=== PATIENT | male | born 1945 | race Caucasian/White ===

== ENCOUNTER 2016-09-02 12:02 | Inpatient (IN) ==
--- NOTE | 2016-09-02 12:26 | Emergency Department Note ---
Disposition Clinical Impression: Urinary retention, Leukocytosis, UTI (urinary tract infection), Confusion Disposition: Admitted As Inpatient General Adult HPI - General Chief complaint: ED Urogenital-Male Stated complaint: unable to void Time Seen by Provider: 09/02/16 12:22 Source: patient Limitations: no limitations - History of Present Illness Pain Scale: 0 - Related Data Home Medications Medication Instructions Recorded Confirmed Clopidogrel [Plavix] 75 mg PO DAILY 06/03/16 09/02/16 Escitalopram [Lexapro] 20 mg PO DAILY 06/03/16 09/02/16 Furosemide [Lasix] 40 mg PO DAILY 06/03/16 09/02/16 Gabapentin [Neurontin] 1,200 mg PO BID 06/03/16 09/02/16 Losartan Potassium [Cozaar] 50 mg PO DAILY 06/03/16 09/02/16 Potassium Chloride [K-Tab ER] 20 meq PO BID 06/03/16 09/02/16 Tamsulosin HCl [Flomax] 0.4 mg PO DAILY 06/03/16 09/02/16 Warfarin [Coumadin] 2.5 mg PO MOTH 06/03/16 09/02/16 Warfarin [Coumadin] 5 mg PO SUTUWEFRSA 06/03/16 09/02/16 Amlodipine [Norvasc] 5 mg PO DAILY 09/02/16 09/02/16 Aspirin [Lo-Dose Aspirin EC] 81 mg PO DAILY 09/02/16 09/02/16 Atorvastatin [Lipitor] 40 mg PO HS 09/02/16 09/02/16 Metoprolol XL (24 HR) Succ [Toprol 100 mg PO DAILY 09/02/16 09/02/16 XL] Allergies Allergy/AdvReac Type Severity Reaction Status Date / Time No Known Allergies Allergy Verified 06/03/16 08:52 Past Medical History - Past Medical History Medical history: Reports: atrial fibrillation, CHF, hyperlipidemia, hypertension Psychiatric history: Reports: depression - Social History Smoking Status: Never smoker Smokeless Tobacco Status: No Alcohol use: Reports: none Drug use: Reports: none Physical Exam - General Limitations: no limitations General appearance: alert, in no apparent distress Course Vital Signs Temperature 99 F 09/02/16 12:18 Pulse Rate 76 09/02/16 12:18 Respiratory Rate 18 09/02/16 12:18 Blood Pressure 90/57 09/02/16 12:18 O2 Sat by Pulse Oximetry 99 09/02/16 12:18 Temperature 98.8 F 09/02/16 18:04 Pulse Rate 80 09/02/16 18:04 Respiratory Rate 16 09/02/16 18:04 Blood Pressure 93/56 09/02/16 18:04 O2 Sat by Pulse Oximetry 96 09/02/16 18:04 Oxygen Delivery Oxygen Delivery Nasal Cannula Medical Decision Making - Lab Data Result diagrams: 09/02/16 13:02 09/02/16 13:02 Lab Results 09/02/16 09/02/16 09/02/16 Range/Units 13:02 13:02 13:02 WBC 22.9 H (4.3-11.1) K/mcL RBC 5.31 (4.19-5.50) M/mcL Hgb 14.4 (12.9-16.9) g/dL Hct 44.4 (37.5-50.1) % MCV 83.6 (83.0-100.0) fL MCH 27.1 L (28.0-33.3) pg MCHC 32.4 (31.6-35.5) g/dL RDW 16.1 H (11.5-14.5) % Plt Count 273 (140-400) K/mcL MPV 10.2 (9.4-12.4) fL Immature Gran % 0.6 (0-4) % Seg Neutrophils % 84.8 % Lymphocytes % 6.3 % Monocytes % 8.1 % Eosinophils % 0.0 % Basophils % 0.2 % Neutrophils # 19.4 H (1.6-8.9) K/mcL Lymphocytes # 1.4 (0.6-4.6) K/mcL Monocytes # 1.9 H (0.0-1.3) K/mcL Eosinophils # 0.0 (0.0-0.6) K/mcL Basophils # 0.0 (0.0-0.2) K/mcL Immature Plt Fraction 5.0 (1.1-6.1) % PT 31.2 H (9.4-12.1) Seconds INR 2.8 Sodium 135 L (136-145) mEq/L Potassium 4.3 (3.5-4.5) mEq/L Chloride 102 (98-109) mEq/L Carbon Dioxide 22 (19-29) mEq/L BUN 20 (8-26) mg/dL Creatinine 1.75 H (0.72-1.25) mg/dL Est GFR ( Amer) 47 L (> 60) Est GFR (Non-Af Amer) 39 L (> 60) BUN/Creatinine Ratio 11 (6-26) Glucose 115 H (70-99) mg/dL Calculated Osmolality 284 (280-300) Calcium 9.2 (8.6-10.8) mg/dL Urine Color (Yellow) Urine Clarity (Clear) Urine pH (5.0-8.0) pH Units Ur Specific [place] (1.010-1.025) Urine Protein (Neg-Trace) mg/dL Urine Glucose (UA) (Normal) mg/dL Urine Ketones (Negative) mg/dL Urine Blood (Negative) Urine Nitrite (Negative) Urine Bilirubin (Negative) Urine Urobilinogen (Normal) mg/dL Ur Leukocyte Esterase (Negative) Urine Microscopic RBC (0-3) per hpf Urine Microscopic WBC (0-3) per hpf Ur Squamous Epith Cells (None-Few) per lpf Urine Bacteria (None-Few) per hpf Hyaline Casts (None-Few) per lpf Ur Culture Indicated? (NO) Digoxin < 0.3 L (0.8-2.0) ng/mL 09/02/16 Range/Units 15:16 WBC (4.3-11.1) K/mcL RBC (4.19-5.50) M/mcL Hgb (12.9-16.9) g/dL Hct (37.5-50.1) % MCV (83.0-100.0) fL MCH (28.0-33.3) pg MCHC (31.6-35.5) g/dL RDW (11.5-14.5) % Plt Count (140-400) K/mcL MPV (9.4-12.4) fL Immature Gran % (0-4) % Seg Neutrophils % % Lymphocytes % % Monocytes % % Eosinophils % % Basophils % % Neutrophils # (1.6-8.9) K/mcL Lymphocytes # (0.6-4.6) K/mcL Monocytes # (0.0-1.3) K/mcL Eosinophils # (0.0-0.6) K/mcL Basophils # (0.0-0.2) K/mcL Immature Plt Fraction (1.1-6.1) % PT (9.4-12.1) Seconds INR Sodium (136-145) mEq/L Potassium (3.5-4.5) mEq/L Chloride (98-109) mEq/L Carbon Dioxide (19-29) mEq/L BUN (8-26) mg/dL Creatinine (0.72-1.25) mg/dL Est GFR ( Amer) (> 60) Est GFR (Non-Af Amer) (> 60) BUN/Creatinine Ratio (6-26) Glucose (70-99) mg/dL Calculated Osmolality (280-300) Calcium (8.6-10.8) mg/dL Urine Color Dark Yellow (Yellow) Urine Clarity Cloudy A (Clear) Urine pH 6.0 (5.0-8.0) pH Units Ur Specific [place] 1.014 (1.010-1.025) Urine Protein 30 H (Neg-Trace) mg/dL Urine Glucose (UA) Normal (Normal) mg/dL Urine Ketones Negative (Negative) mg/dL Urine Blood Large H (Negative) Urine Nitrite Negative (Negative) Urine Bilirubin Negative (Negative) Urine Urobilinogen Normal (Normal) mg/dL Ur Leukocyte Esterase Moderate H (Negative) Urine Microscopic RBC 15-30 H (0-3) per hpf Urine Microscopic WBC 30-50 H (0-3) per hpf Ur Squamous Epith Cells Many H (None-Few) per lpf Urine Bacteria None Seen (None-Few) per hpf Hyaline Casts None Seen (None-Few) per lpf Ur Culture Indicated? YES A (NO) Digoxin (0.8-2.0) ng/mL Attestation Statement - Attestation Attestation: I examined this patient and my medical decision-making was reviewed with the MODEL MAKER/PA/Advanced Practice Nurse/Resident Physician. I agree with the documented findings, disposition and treatment plan as described except to the extent set forth below. [id number] time provided Patient presents via wheelchair. He complains of the inability to void. He was recently admitted to a different facility for congestive heart failure. He is supposed to take tamsulosin but has not been taking it. He denies acute urinary retention in the past. He denies abdominal or flank pain 12:33: Limited transabdominal bedside ultrasound performed by me showing increased densities to the dependent portion of his bladder suspicious for clots. We have asked the nurse to place an irrigating [place] catheter and to irrigate the bladder. We will observe for resolution of symptoms. 15:55: Patient has a leukocytosis and a urinary tract infection but does not meet sepsis criteria otherwise. I spoke with Dr. Martinez, urology will likely be consult in to evaluate the patient for possible future bladder irrigation. Admit to the medicine service. Antibiotics initiated
--- NOTE | 2016-09-02 12:39 | Emergency Department Note ---
Disposition Clinical Impression: Urinary retention, Confusion Leukocytosis Qualifiers: Leukocytosis type: unspecified Qualified Code(s): D72.829 - Elevated white blood cell count, unspecified UTI (urinary tract infection) Qualifiers: Urinary tract infection type: site unspecified Hematuria presence: with hematuria Qualified Code(s): N39.0 - Urinary tract infection, site not specified Disposition: Admitted As Inpatient Male Urogenital HPI - General Chief complaint: ED Urogenital-Male Stated complaint: unable to void Time Seen by Provider: 09/02/16 12:22 Source: patient Limitations: no limitations Nursing Notes Reviewed: Yes Vital Signs Reviewed: Yes - History of Present Illness HPI Narrative: Mr. Olguin, a 71yo male, presents from home by POV with CC: unable to urinate. Patient has been unable to urinate since this morning. Yesterday, he stated he urinated blood with clots. He also was incontinent of urine while asleep. Patient has history of BPH, recently dc's Flomax by [facility]. Is 10 days out from discharge from [facility] where he was inpatient on the cardiac unit for CHF. He did not have a gotti catheter in place at [facility]. Patient denies chest pains or cardiac concerns today. Anticoagulated on coumadin for chronic A. Fib. no hx CKD, prostate cancer, bladder cancer. Admits: unable to urinate, recent hematuria. Denies: fever, chills, nausea, abdominal pain, back pain, flank pain, vertigo, weakness, chest pain. - Related Data Home Medications Medication Instructions Recorded Confirmed Clopidogrel [Plavix] 75 mg PO DAILY 06/03/16 09/02/16 Escitalopram [Lexapro] 20 mg PO DAILY 06/03/16 09/02/16 Furosemide [Lasix] 40 mg PO DAILY 06/03/16 09/02/16 Gabapentin [Neurontin] 1,200 mg PO BID 06/03/16 09/02/16 Losartan Potassium [Cozaar] 50 mg PO DAILY 06/03/16 09/02/16 Potassium Chloride [K-Tab ER] 20 meq PO BID 06/03/16 09/02/16 Tamsulosin HCl [Flomax] 0.4 mg PO DAILY 06/03/16 09/02/16 Warfarin [Coumadin] 2.5 mg PO MOTH 06/03/16 09/02/16 Warfarin [Coumadin] 5 mg PO SUTUWEFRSA 06/03/16 09/02/16 Amlodipine [Norvasc] 5 mg PO DAILY 09/02/16 09/02/16 Aspirin [Lo-Dose Aspirin EC] 81 mg PO DAILY 09/02/16 09/02/16 Atorvastatin [Lipitor] 40 mg PO HS 09/02/16 09/02/16 Metoprolol XL (24 HR) Succ [Toprol 100 mg PO DAILY 09/02/16 09/02/16 XL] Allergies Allergy/AdvReac Type Severity Reaction Status Date / Time No Known Allergies Allergy Verified 06/03/16 08:52 All systems ED: reviewed and negative except as stated. (as per HPI) Past Medical History - Past Medical History Medical history: Reports: atrial fibrillation, CHF, hyperlipidemia, hypertension Psychiatric history: Reports: depression - Social History Smoking Status: Never smoker Smokeless Tobacco Status: No Alcohol use: Reports: none Drug use: Reports: none Physical Exam General: Patient is alert, oriented, and in no acute distress. HEENT: No facial asymmetry. Head is normocephalic and atraumatic. PERRLA. Cardiovascular: Heart regular rate and rhythm without clicks, rubs, gallops, or murmurs. No JVD. PMI nondisplaced. Respiratory: Symmetric chest rise with good respiratory effort. Bilateral breath sounds are clear without wheezing, crackles, or rhonchi. Abdomen: Obese. Bowel sounds present normoactive x-4 quadrants. Abdomen is soft, nondistended, and nontender. Unable to assess organomegaly secondary to patient's body habitus. No flank tenderness. No CVA tenderness. Psych: Patient's affect is appropriate for situation. - General Limitations: no limitations General appearance: alert, in no apparent distress Course Course Narrative: Bedside ultrasound performed by myself and my attending showed a small bladder with hyperechoic substance in the dependent portion suspicious for clots. Will place through a Gotti so that we may irrigate his bladder. We will also perform a UA to rule out UTI as well as coags and basic labs. Labwork shows leukocytosis at 22.5. Cr elevated at 1.75. Otherwise unremarkable. Patient has been reassessed multiple times. Have flushed 3L through the triple lumen cath; now producing clear fluid. Will clamp the irrigation tubing to collect patient's urine. Patient's urine yellow and not grossly bloody. Will send for UA. On re- evaluation, patient is confused. Daughter notes he has intermittantly had confusion. Timeline unknown. Will add digoxin level, EKG, and CT head. Will admit for urinary retention and AMS. Patient's urine indicates UTI. His white count is 22.5. He does not meet SIRS criteria thus will not initiate sepsis protocol. His digoxin level is low. After discussion with the patient's daughter at bedside, the patient for urologic evaluation, IV antibiotics for UTI, continued evaluation of his confusion. Vital Signs Temperature 99 F 09/02/16 12:18 Pulse Rate 76 09/02/16 12:18 Respiratory Rate 18 09/02/16 12:18 Blood Pressure 90/57 09/02/16 12:18 O2 Sat by Pulse Oximetry 99 09/02/16 12:18 Temperature 98.8 F 09/02/16 18:04 Pulse Rate 80 09/02/16 18:04 Respiratory Rate 16 09/02/16 18:04 Blood Pressure 93/56 09/02/16 18:04 O2 Sat by Pulse Oximetry 96 09/02/16 18:04 Oxygen Delivery Oxygen Delivery Nasal Cannula Urogenital-Male - Medical Records Medical records reviewed: Yes I reviewed the patient's medical records. - Lab Data Lab results reviewed: Yes I reviewed the patient's lab results. Result diagrams: 09/02/16 13:02 09/02/16 13:02 Lab Results 09/02/16 09/02/16 09/02/16 Range/Units 13:02 13:02 13:02 WBC 22.9 H (4.3-11.1) K/mcL RBC 5.31 (4.19-5.50) M/mcL Hgb 14.4 (12.9-16.9) g/dL Hct 44.4 (37.5-50.1) % MCV 83.6 (83.0-100.0) fL MCH 27.1 L (28.0-33.3) pg MCHC 32.4 (31.6-35.5) g/dL RDW 16.1 H (11.5-14.5) % Plt Count 273 (140-400) K/mcL MPV 10.2 (9.4-12.4) fL Immature Gran % 0.6 (0-4) % Seg Neutrophils % 84.8 % Lymphocytes % 6.3 % Monocytes % 8.1 % Eosinophils % 0.0 % Basophils % 0.2 % Neutrophils # 19.4 H (1.6-8.9) K/mcL Lymphocytes # 1.4 (0.6-4.6) K/mcL Monocytes # 1.9 H (0.0-1.3) K/mcL Eosinophils # 0.0 (0.0-0.6) K/mcL Basophils # 0.0 (0.0-0.2) K/mcL Immature Plt Fraction 5.0 (1.1-6.1) % PT 31.2 H (9.4-12.1) Seconds INR 2.8 Sodium 135 L (136-145) mEq/L Potassium 4.3 (3.5-4.5) mEq/L Chloride 102 (98-109) mEq/L Carbon Dioxide 22 (19-29) mEq/L BUN 20 (8-26) mg/dL Creatinine 1.75 H (0.72-1.25) mg/dL Est GFR ( Amer) 47 L (> 60) Est GFR (Non-Af Amer) 39 L (> 60) BUN/Creatinine Ratio 11 (6-26) Glucose 115 H (70-99) mg/dL Calculated Osmolality 284 (280-300) Calcium 9.2 (8.6-10.8) mg/dL Urine Color (Yellow) Urine Clarity (Clear) Urine pH (5.0-8.0) pH Units Ur Specific [place] (1.010-1.025) Urine Protein (Neg-Trace) mg/dL Urine Glucose (UA) (Normal) mg/dL Urine Ketones (Negative) mg/dL Urine Blood (Negative) Urine Nitrite (Negative) Urine Bilirubin (Negative) Urine Urobilinogen (Normal) mg/dL Ur Leukocyte Esterase (Negative) Urine Microscopic RBC (0-3) per hpf Urine Microscopic WBC (0-3) per hpf Ur Squamous Epith Cells (None-Few) per lpf Urine Bacteria (None-Few) per hpf Hyaline Casts (None-Few) per lpf Ur Culture Indicated? (NO) Digoxin < 0.3 L (0.8-2.0) ng/mL 09/02/16 Range/Units 15:16 WBC (4.3-11.1) K/mcL RBC (4.19-5.50) M/mcL Hgb (12.9-16.9) g/dL Hct (37.5-50.1) % MCV (83.0-100.0) fL MCH (28.0-33.3) pg MCHC (31.6-35.5) g/dL RDW (11.5-14.5) % Plt Count (140-400) K/mcL MPV (9.4-12.4) fL Immature Gran % (0-4) % Seg Neutrophils % % Lymphocytes % % Monocytes % % Eosinophils % % Basophils % % Neutrophils # (1.6-8.9) K/mcL Lymphocytes # (0.6-4.6) K/mcL Monocytes # (0.0-1.3) K/mcL Eosinophils # (0.0-0.6) K/mcL Basophils # (0.0-0.2) K/mcL Immature Plt Fraction (1.1-6.1) % PT (9.4-12.1) Seconds INR Sodium (136-145) mEq/L Potassium (3.5-4.5) mEq/L Chloride (98-109) mEq/L Carbon Dioxide (19-29) mEq/L BUN (8-26) mg/dL Creatinine (0.72-1.25) mg/dL Est GFR ( Amer) (> 60) Est GFR (Non-Af Amer) (> 60) BUN/Creatinine Ratio (6-26) Glucose (70-99) mg/dL Calculated Osmolality (280-300) Calcium (8.6-10.8) mg/dL Urine Color Dark Yellow (Yellow) Urine Clarity Cloudy A (Clear) Urine pH 6.0 (5.0-8.0) pH Units Ur Specific [place] 1.014 (1.010-1.025) Urine Protein 30 H (Neg-Trace) mg/dL Urine Glucose (UA) Normal (Normal) mg/dL Urine Ketones Negative (Negative) mg/dL Urine Blood Large H (Negative) Urine Nitrite Negative (Negative) Urine Bilirubin Negative (Negative) Urine Urobilinogen Normal (Normal) mg/dL Ur Leukocyte Esterase Moderate H (Negative) Urine Microscopic RBC 15-30 H (0-3) per hpf Urine Microscopic WBC 30-50 H (0-3) per hpf Ur Squamous Epith Cells Many H (None-Few) per lpf Urine Bacteria None Seen (None-Few) per hpf Hyaline Casts None Seen (None-Few) per lpf Ur Culture Indicated? YES A (NO) Digoxin (0.8-2.0) ng/mL - Radiology Data Radiology results reviewed: Yes I reviewed the patient's radiology results. Head CT 09/02/16 15:15 IMPRESSION: No acute intracranial abnormality. D/ / Yuri Veliz MD / Yuri Veliz MD Interpreting Provider: Yuri Veliz MD - EKG Data EKG attestation: Yes I reviewed and interpreted this EKG. EKG results narrative: EKG dated 09/02/16 interpreted as ventricularly paced rhythm with a rate of 81. Compared to previous dated 06/03/2016 also showing ventricularly paced rhythm with a rate of 82. No acute ischemic changes comparison.
[2016-09-02 13:08] LABS: Basophils % 0.2 %; Hematocrit 44.4 % (37.5-50.1); Hemoglobin 14.4 g/dL (12.9-16.9); Immature Granulocytes % 0.6 % (0-4); Lymphocytes # 1.4 K/mcL (0.6-4.6); Lymphocytes % 6.3 %; Mean Corpuscular HGB Conc 32.4 g/dL (31.6-35.5); Mean Corpuscular Hemoglobin 27.1 pg (28.0-33.3); Mean Corpuscular Volume 83.6 fL (83.0-100.0); Mean Platelet Volume 10.2 fL (9.4-12.4); Monocytes # 1.9 K/mcL (0.0-1.3); Monocytes % 8.1 %; Neutrophils # 19.4 K/mcL (1.6-8.9); Platelet Count 273 K/mcL (140-400); Red Blood Count 5.31 M/mcL (4.19-5.50); Red Cell Distribution Width 16.1 % (11.5-14.5); Segmented Neutrophils % 84.8 %
[2016-09-02 13:13] LABS: INR 2.8; Prothrombin Time 31.2 Seconds (9.4-12.1)
[2016-09-02 13:21] LABS: BUN/Creatinine Ratio 11 (6-26); Blood Urea Nitrogen 20 mg/dL (8-26); Calcium 9.2 mg/dL (8.6-10.8); Carbon Dioxide 22 mEq/L (19-29); Chloride 102 mEq/L (98-109); Glucose 115 mg/dL (70-99); Osmolality,Calculated 284 (280-300); Potassium 4.3 mEq/L (3.5-4.5); Sodium 135 mEq/L (136-145); eGFR For African Americans 47 (> 60); eGFR For Non-African Americans 39 (> 60)
[2016-09-02 15:26] LABS: Bilirubin,Urine Negative (Negative); Blood,Urine Large (Negative); Clarity,Urine Cloudy (Clear); Color,Urine Dark Yellow (Yellow); Glucose,Urine (UA) Normal (Normal); Ketones,Urine Negative (Negative); Leukocyte Esterase,Urine Moderate (Negative); Nitrite,Urine Negative (Negative); Protein,Urine 30 mg/dL (Neg-Trace); Specific Gravity,Urine 1.014 (1.010-1.025); Urobilinogen,Urine Normal (Normal)
[2016-09-02 15:28] LABS: Bacteria,Urine None Seen per hpf (None-Few); Hyaline Casts,Urine None Seen per lpf (None-Few); RBC,Urine 15-30 per hpf (0-3); Squamous Epithelial Cell,Urine Many per lpf (None-Few); WBC,Urine 30-50 per hpf (0-3)
[2016-09-02 15:58] LABS: Digoxin < 0.3 ng/mL (0.8-2.0)
[2016-09-02] MEDS ORDERED: *HR* HYDROmorphone (PF) 1 MG/ML SYRINGE IVP ONE (16:36)
[2016-09-02] MEDS ORDERED: Naloxone 0.4 MG/ML INJ IVP PRN (18:12)
[2016-09-02] MEDS ORDERED: Acetaminophen 325 MG TABLET PO PRN (18:12)
--- NOTE | 2016-09-02 18:19 | Internal Med History&Physical ---
Date of Encounter: 09/02/16 Time of Encounter: 18:16 Assessment and Plan (1) Acute cystitis with hematuria Current visit: Yes Status: Acute IV ceftriaxone. Follow up culture and sensitivities. De-escalating antibiotic treatment according to cultures. (2) Chronic systolic heart failure Current visit: Yes Status: Acute Continue with oral Lasix. Daily weights. Fluid and sodium restricted diet. Avoid IV fluids. (3) BPH (benign prostatic hypertrophy) with urinary retention Current visit: Yes Status: Acute Patient was on Flomax but this was stopped at [facility] due to orthostatic hypotension and presyncopal symptoms and will not be restarted at this time. We will consult urology for any other therapeutic options. (4) Essential hypertension Current visit: Yes Status: Acute Continue oral antihypertensive medication regimen per home dose. (5) Coronary artery disease Current visit: Yes Status: Acute Continue aspirin and Plavix. Continue with statin and beta al. Qualifiers: Coronary Disease-Associated Artery/Lesion type: [place] artery [place] vs. transplanted heart: [place] heart Associated angina: without angina Qualified Code(s): I25.10 - Atherosclerotic heart disease of [place] coronary artery without angina pectoris (6) Urinary retention Current visit: Yes Status: Acute Patient is on CBI. We will continue dose in consultation neurology. (7) Cardiomyopathy Current visit: No Status: Acute Qualifiers: Cardiomyopathy type: ischemic Qualified Code(s): I25.5 - Ischemic cardiomyopathy (8) Atrial fibrillation Current visit: Yes Status: Acute Hold Coumadin due to hematuria. May resume once the infection is treated and hematuria resolves. Qualifiers: Atrial fibrillation type: chronic Qualified Code(s): I48.2 - Chronic atrial fibrillation (9) Anticoagulated on warfarin Current visit: Yes Status: Acute Hold Coumadin. INR is 2.8. Check INR daily in the morning. She does not need vitamin K at this time. Internal Medicine - H&P: HPI Chief complaint: Inability to urinate Admitted From: Emergency Dept Plans for Post Hospital Care: Home History of present illness: Mr. Olguin is a 71 year old male, poor historian and with mental confusion which limits the history obtained from the patient and who presented to the hospital for inability to urinate for 2 days. He says that he passes very small amount of bloody urine at a time. He has not been able to completely for it for the last 2 days. She reports associated lower abdominal pain. He has been recently admitted to [facility] and treated for heart failure. At that time per the patient's family member the patient had a pacemaker AICD placed and had a Cardiac Catheterization Which Showed Severe Disease of the Left Main and Had a Stent Placed. Review of Systems Positive for Urinary Retention, Shortness of Breath, Weakness and Generalized Deconditioning Otherwise Negative. Family History Was Reviewed and Found to Be Noncontributory to This Presentation. Past Med Surg Social Fam HX - Past Medical History Medical history: atrial fibrillation, CHF, hyperlipidemia, hypertension Psychiatric history: depression - Social History Smoking Status: Never smoker Smokeless Tobacco Status: No Alcohol use: none Drug use: none Internal Medicine - H&P: Meds Clopidogrel [Plavix] 75 mg PO DAILY 06/03/16 [History] Escitalopram [Lexapro] 20 mg PO DAILY 06/03/16 [History] Furosemide [Lasix] 40 mg PO DAILY 06/03/16 [History] Gabapentin [Neurontin] 1,200 mg PO BID 06/03/16 [History] Losartan Potassium [Cozaar] 50 mg PO DAILY 06/03/16 [History] Potassium Chloride [K-Tab ER] 20 meq PO BID 06/03/16 [History] Tamsulosin HCl [Flomax] 0.4 mg PO DAILY 06/03/16 [History] Warfarin [Coumadin] 2.5 mg PO MOTH 06/03/16 [History] Warfarin [Coumadin] 5 mg PO SUTUWEFRSA 06/03/16 [History] Amlodipine [Norvasc] 5 mg PO DAILY 09/02/16 [History] Aspirin [Lo-Dose Aspirin EC] 81 mg PO DAILY 09/02/16 [History] Atorvastatin [Lipitor] 40 mg PO HS 09/02/16 [History] Metoprolol XL (24 HR) Succ [Toprol XL] 100 mg PO DAILY 09/02/16 [History] Allergies No Known Allergies Allergy (Verified 06/03/16 08:52) All Systems PM: A 10-system review of systems was performed and is negative for pertinent findings except as documented above in the HPI. - Constitutional Vitals: Temp Pulse Resp BP Pulse Ox 98.8 F 80 16 93/56 96 09/02/16 18:04 09/02/16 18:04 09/02/16 18:04 09/02/16 18:04 09/02/16 18:04 General appearance: Present: A&O X 2 - Eye Eye exam: Present: PERRL, conjuntiva pink, sclera anicteric Pupils: Present: PERRL - Respiratory Respiratory exam: Present: CTAB. Absent: accessory muscle use, rales, rhonchi, wheezes - Cardiovascular Cardiovascular exam: Present: RRR, +S1, +S2. Absent: diastolic murmur, gallop, rubs, systolic murmur - GI/Abdominal GI/Abdominal exam: Present: normal bowel sounds, soft, no peritoneal signs. Absent: distended, tenderness - Extremities Exam Extremities exam: Present: warm, radial pulses palpable and symetrical. Absent : calf tenderness, cyanotic, pedal edema - Skin Skin exam: Present: dry, intact Internal Med - H&P Results - Labs CBC & Chem 7: 09/02/16 13:02 09/02/16 13:02 - Impressions Echocardiogram from May 2015 reveals an ejection fraction of 30% with severely dilated left ventricle.
--- NOTE | 2016-09-02 19:32 | Urology - Consult Note ---
Date of Encounter: 09/03/16 Time of Encounter: 07:00 - Assessment and Plan (1) Gross hematuria Current Visit: Yes Status: Acute Assessment and plan: resolved this AM. I recommend CT scan Abd/pelvis to evaluate for other etiology for elevated WBC and hematuria. further recs after CT scan (ordered) (2) Urinary retention Current Visit: Yes Status: Acute Assessment and plan: continue gotti cath continue ABX. follow cultures. Urology CN:HPI Consult date: 09/03/16 Reason for consult Urology: Gross Hematuria History of present illness: 71 yo admitted for confusion, elevated WBC, hematuria (gross), possible urinary retention. multiple medical issues. hx bph and tamsulosin stopped bc of orthostatic hypotension. bedside ultrasound in ER demonstrated possible clots Past Med Surg Social Fam HX - Past Medical History Medical history: atrial fibrillation, CHF, hyperlipidemia, hypertension Psychiatric history: depression - Social History Smoking Status: Never smoker Smokeless Tobacco Status: No Alcohol use: none Drug use: none - Family History Mother Living Status: Father Living Status: Hx Family Cardiac Disorders: Yes Medications and Allergies Clopidogrel [Plavix] 75 mg PO DAILY 06/03/16 [History] Escitalopram [Lexapro] 20 mg PO DAILY 06/03/16 [History] Furosemide [Lasix] 40 mg PO DAILY 06/03/16 [History] Gabapentin [Neurontin] 1,200 mg PO BID 06/03/16 [History] Losartan Potassium [Cozaar] 50 mg PO DAILY 06/03/16 [History] Potassium Chloride [K-Tab ER] 20 meq PO BID 06/03/16 [History] Tamsulosin HCl [Flomax] 0.4 mg PO DAILY 06/03/16 [History] Warfarin [Coumadin] 2.5 mg PO MOTH 06/03/16 [History] Warfarin [Coumadin] 5 mg PO SUTUWEFRSA 06/03/16 [History] Amlodipine [Norvasc] 5 mg PO DAILY 09/02/16 [History] Aspirin [Lo-Dose Aspirin EC] 81 mg PO DAILY 09/02/16 [History] Atorvastatin [Lipitor] 40 mg PO HS 09/02/16 [History] Metoprolol XL (24 HR) Succ [Toprol XL] 100 mg PO DAILY 09/02/16 [History] Allergies No Known Allergies Allergy (Verified 06/03/16 08:52) Review of Systems - Constitutional fever(s), malaise - EENT Nose, mouth and throat: no dizziness - Cardiovascular chest pain - Respiratory no cough - Gastrointestinal no abdominal pain - Genitourinary difficulty urinating - Integumentary no erythema - Neurological no confusion - Psychiatric no anxiety - Hematologic/Lymphatic no easy bleeding - Allergic/Immunologic no throat swelling Exam Initial Vital Signs Temp Pulse Resp BP Pulse Ox 99 F 76 18 90/57 99 09/02/16 12:18 09/02/16 12:18 09/02/16 12:18 09/02/16 12:18 09/02/16 12:18 - General physical appearance Present: well developed, no distress - Eyes Present: PERRL - ENT Present: normal nares, other (cpap) - Respiratory Present: normal respiratory effort - Cardiovascular Cardiovascular exam IM: RRR - Abdomen Abdomen: Present: soft - Integumentary Present: no rash - Neurologic Present: normal coordination. Absent: disoriented, confused - Additional Findings foely cath in place. CBI off. no hematuria. Urology Results - Labs 09/03/16 03:57 09/03/16 03:57 Abnormal lab results WBC 22.9 K/mcL (4.3-11.1) H 09/02/16 13:02 MCH 27.1 pg (28.0-33.3) L 09/02/16 13:02 RDW 16.1 % (11.5-14.5) H 09/02/16 13:02 Neutrophils # 19.4 K/mcL (1.6-8.9) H 09/02/16 13:02 Monocytes # 1.9 K/mcL (0.0-1.3) H 09/02/16 13:02 PT 31.2 Seconds (9.4-12.1) H 09/02/16 13:02 Sodium 135 mEq/L (136-145) L 09/02/16 13:02 Creatinine 1.75 mg/dL (0.72-1.25) H 09/02/16 13:02 Est GFR ( Amer) 47 (> 60) L 09/02/16 13:02 Est GFR (Non-Af Amer) 39 (> 60) L 09/02/16 13:02 Glucose 115 mg/dL (70-99) H 09/02/16 13:02 Urine Clarity Cloudy (Clear) A 09/02/16 15:16 Urine Protein 30 mg/dL (Neg-Trace) H 09/02/16 15:16 Urine Blood Large (Negative) H 09/02/16 15:16 Ur Leukocyte Esterase Moderate (Negative) H 09/02/16 15:16 Urine Microscopic RBC 15-30 per hpf (0-3) H 09/02/16 15:16 Urine Microscopic WBC 30-50 per hpf (0-3) H 09/02/16 15:16 Ur Squamous Epith Cells Many per lpf (None-Few) H 09/02/16 15:16 Ur Culture Indicated? YES (NO) A 09/02/16 15:16 Digoxin < 0.3 ng/mL (0.8-2.0) L 09/02/16 13:02 All other labs normal. Consult Discharge Plan - Plan Referrals: J Carlos Cruz Jr, MD [Primary Care Provider] -
[2016-09-02] MEDS: Gabapentin 400 MG CAPSULE PO SCH (20:21)
[2016-09-02] MEDS: *HR* OxyCODONE Immed Rel 5 MG TABLET PO PRN (21:44)
[2016-09-03 04:14] LABS: Basophils # 0.1 K/mcL (0.0-0.2); Basophils % 0.3 %; Hemoglobin 13.9 g/dL (12.9-16.9); Immature Granulocytes % 0.6 % (0-4); Lymphocytes # 1.7 K/mcL (0.6-4.6); Lymphocytes % 6.9 %; Mean Corpuscular HGB Conc 33.1 g/dL (31.6-35.5); Mean Corpuscular Hemoglobin 27.8 pg (28.0-33.3); Mean Platelet Volume 10.4 fL (9.4-12.4); Monocytes % 8.3 %; Neutrophils # 20.7 K/mcL (1.6-8.9); Platelet Count 255 K/mcL (140-400); Red Cell Distribution Width 16.2 % (11.5-14.5); Segmented Neutrophils % 83.9 %
[2016-09-03 04:17] LABS: INR 2.7; Prothrombin Time 29.9 Seconds (9.4-12.1)
[2016-09-03 04:29] LABS: Calcium 9.3 mg/dL (8.6-10.8)
[2016-09-03] MEDS: *HR* OxyCODONE Immed Rel 5 MG TABLET PO PRN ×2 (04:46→12:29)
[2016-09-03] MEDS: *HR* HYDROmorphone (PF) 1 MG/ML SYRINGE IVP PRN ×3 (09:03→20:55)
[2016-09-03] MEDS: amLODIPine 5 MG TABLET PO SCH (09:04)
[2016-09-03] MEDS: Aspirin Enteric Coated 81 MG Tablet PO SCH (09:04)
[2016-09-03] MEDS: Furosemide 40 MG TABLET PO SCH (09:04)
[2016-09-03] MEDS: Gabapentin 400 MG CAPSULE PO SCH ×2 (09:04→20:44)
--- NOTE | 2016-09-03 09:11 | Internal Med Progress Note ---
Date of Encounter: 09/03/16 Time of Encounter: 09:09 - Assessment and plan (1) Acute cystitis with hematuria Current Visit: Yes Status: Acute Assessment and plan: Sepsis secondary to UTI with hematuria White blood cell count of 24.7 and fever of 102.1 Continue Rocephin day 2 Coumadin is on hold Await final report of urine culture Keep Oneill catheter CT scan of the abdomen and pelvis was ordered by urology, recommendations appreciated No IV fluids for now due to history of CHF Consider holding aspirin and Plavix if hematuria is worse (2) Atrial fibrillation Current Visit: Yes Status: Acute Assessment and plan: Hold warfarin, recheck INR in the morning, monitor CBC Continue metoprolol Qualifiers: Atrial fibrillation type: chronic Qualified Code(s): I48.2 - Chronic atrial fibrillation (3) BPH (benign prostatic hypertrophy) with urinary retention Current Visit: Yes Status: Acute (4) Chronic systolic heart failure Current Visit: Yes Status: Acute Assessment and plan: Continue Lasix (5) Leukocytosis Current Visit: Yes Status: Acute Assessment and plan: Secondary to UTI/sepsis Qualifiers: Leukocytosis type: unspecified Qualified Code(s): D72.829 - Elevated white blood cell count, unspecified (6) UTI (urinary tract infection) Current Visit: Yes Status: Acute Assessment and plan: High risk for sepsis Qualifiers: Urinary tract infection type: site unspecified Hematuria presence: with hematuria Qualified Code(s): N39.0 - Urinary tract infection, site not specified; R31.9 - Hematuria, unspecified - Time Spent With Patient Greater than 35 minutes - Subjective Interval history: Complains of lower abdominal pain 6 out of 10 in intensity, mentions that yesterday he was not able to urinate. Denies any cough, had a fever 102.1 yesterday. No diarrhea, no chest pain or shortness of breath. - Constitutional Vitals: Temp Pulse Resp BP Pulse Ox 98.3 F 55 18 127/59 91 L 09/03/16 06:56 09/03/16 06:56 09/03/16 06:56 09/03/16 06:56 09/03/16 06:56 General appearance: Present: A&O X 3 (Confused at times) - Head Head exam: Present: atraumatic, normocephalic - Eye Eye exam: Present: PERRL, conjuntiva pink, sclera anicteric Pupils: Present: PERRL - Neck Neck exam general surgery: Present: supple, trachea midline. Absent: lymphadenopathy - Respiratory Respiratory exam: Present: CTAB. Absent: accessory muscle use, rales, rhonchi, wheezes - Cardiovascular Cardiovascular exam: Present: RRR, +S1, +S2. Absent: diastolic murmur, gallop, rubs, systolic murmur - GI/Abdominal GI/Abdominal exam: Present: distended, normal bowel sounds, soft, no peritoneal signs. Absent: tenderness - Extremities Exam Extremities exam: Present: warm, radial pulses palpable and symetrical. Absent : calf tenderness, cyanotic, pedal edema - Neurological Exam Neurological exam: Present: CN II-XII intact, oriented X3, no focal deficits. Absent: pronater drift, facial droop, speech deficit - Skin Skin exam: Present: dry, intact Additional comments: Oneill catheter in place with no gross hematuria evidenced Internal Medicine: Result - Labs CBC & Chem 7: 09/03/16 03:57 09/03/16 03:57 Labs: Short CBC 09/03/16 Range/Units 03:57 WBC 24.7 H (4.3-11.1) K/mcL Hgb 13.9 (12.9-16.9) g/dL Hct 42.0 (37.5-50.1) % Plt Count 255 (140-400) K/mcL Neutrophils # 20.7 H (1.6-8.9) K/mcL BMP 09/03/16 03:57 Sodium 135 L Potassium 4.0 Chloride 102 Carbon Dioxide 22 BUN 23 Creatinine 1.70 H Glucose 113 H Calcium 9.3 - ABG Interpretation ABG results: PT/INR, D-dimer PT 29.9 Seconds (9.4-12.1) H 09/03/16 03:57 - Impressions Impressions Abdomen/Pelvis CT 09/03/16 08:30 IMPRESSION: Extensive soft tissue stranding surrounding the urinary bladder and seminal vesicles in the related prostatitis and cystitis. Recommend correlation urinalysis. Irregular contour of the urinary bladder dome may reflect mural thickening related to cystitis. However, malignancy cannot be excluded. Consider correlation with cystoscopy, if clinically warranted. D/ / Miguel Ortiz MD / Miguel Ortiz MD Interpreting Provider: Miguel Ortiz MD Consult Discharge Plan - Plan Referrals: J Carlos Cruz Jr, MD [Primary Care Provider] -
--- NOTE | 2016-09-03 15:16 | Event Note ---
Date of Encounter: 09/03/16 Time of Encounter: 15:[address] scan images and agree with the findings. Patient does not require urologic intervention while in hospital. continue ABX and recheck WBCs in AM. will provide plan for catheter (It will probably stay in place until outpatient cysto). Will plan outpatient cystoscopy in the office in next week or so.
[2016-09-03] MEDS: Metoprolol XL (24 HR) Succ 50 MG TAB.ER.24H PO SCH (16:32)
--- NOTE | 2016-09-03 19:40 | Electrocardiograph Report ---
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
[2016-09-04] MEDS: *HR* OxyCODONE Immed Rel 5 MG TABLET PO PRN ×2 (00:08→06:20)
[2016-09-04 04:28] LABS: Hematocrit 39.4 % (37.5-50.1); Hemoglobin 12.9 g/dL (12.9-16.9); Mean Corpuscular HGB Conc 32.7 g/dL (31.6-35.5); Mean Corpuscular Hemoglobin 27.6 pg (28.0-33.3); Mean Corpuscular Volume 84.2 fL (83.0-100.0); Platelet Count 257 K/mcL (140-400); Red Blood Count 4.68 M/mcL (4.19-5.50); Red Cell Distribution Width 16.3 % (11.5-14.5)
[2016-09-04 04:33] LABS: INR 2.6; Prothrombin Time 28.3 Seconds (9.4-12.1)
[2016-09-04 04:50] LABS: BUN/Creatinine Ratio 21 (6-26); Blood Urea Nitrogen 27 mg/dL (8-26); Carbon Dioxide 22 mEq/L (19-29); Chloride 103 mEq/L (98-109); Glucose 107 mg/dL (70-99); Osmolality,Calculated 286 (280-300); Potassium 4.2 mEq/L (3.5-4.5); Sodium 135 mEq/L (136-145); eGFR For African Americans > 60 (> 60); eGFR For Non-African Americans 56 (> 60)
[2016-09-04] MEDS: Metoprolol XL (24 HR) Succ 50 MG TAB.ER.24H PO SCH (07:58)
[2016-09-04] MEDS: amLODIPine 5 MG TABLET PO SCH (07:58)
[2016-09-04] MEDS: Furosemide 40 MG TABLET PO SCH (07:58)
[2016-09-04] MEDS: Gabapentin 400 MG CAPSULE PO SCH ×2 (09:54→21:52)
[2016-09-04] MEDS: Aspirin Enteric Coated 81 MG Tablet PO SCH (09:54)
--- NOTE | 2016-09-04 15:09 | Internal Med Progress Note ---
Date of Encounter: 09/04/16 Time of Encounter: 15:09 - Assessment and plan (1) Acute prostatitis with hematuria Current Visit: Yes Status: Acute Assessment and plan: Sepsis secondary to acute prostatitis with hematuria Culture positive for Escherichia coli that is sensitive to ceftriaxone. The patient will require possibly 6 weeks of antibiotics, may be able to be discharged on cephalexin Start mild hydration due to hypotension (2) Acute cystitis with hematuria Current Visit: Yes Status: Acute Assessment and plan: Sepsis secondary to UTI with hematuria White blood cell count of 24.7 and fever of 102.1 Continue Rocephin day 3 Coumadin is on hold Await final report of urine culture Keep Oneill catheter CT scan of the abdomen and pelvis showed extensive soft tissue stranding surrounding the urinary bladder and seminal vesicles related to possible prostatitis and cystitis Mild hydration with IV fluids for now due to history of CHF Consider holding aspirin and Plavix if hematuria is worse (3) Atrial fibrillation Current Visit: Yes Status: Acute Assessment and plan: Hold warfarin, recheck INR in the morning, monitor CBC Continue metoprolol Qualifiers: Atrial fibrillation type: chronic Qualified Code(s): I48.2 - Chronic atrial fibrillation (4) BPH (benign prostatic hypertrophy) with urinary retention Current Visit: Yes Status: Acute (5) Chronic systolic heart failure Current Visit: Yes Status: Acute Assessment and plan: Continue Lasix (6) Leukocytosis Current Visit: Yes Status: Acute Assessment and plan: Secondary to UTI/sepsis Qualifiers: Leukocytosis type: unspecified Qualified Code(s): D72.829 - Elevated white blood cell count, unspecified (7) UTI (urinary tract infection) Current Visit: Yes Status: Acute Assessment and plan: High risk for sepsis Qualifiers: Urinary tract infection type: site unspecified Hematuria presence: with hematuria Qualified Code(s): N39.0 - Urinary tract infection, site not specified; R31.9 - Hematuria, unspecified - Time Spent With Patient Greater than 35 minutes - Subjective Interval history: Lower abdominal pain ahs improved down to 3 out of 10 in intensity, mentions that the day before yesterday he was not able to urinate. Denies any cough, had a fever 102.1 on September 02, had a fever of 99.8. No diarrhea, no chest pain or shortness of breath. - Constitutional Vitals: Temp Pulse Resp BP Pulse Ox 97.9 F 58 18 85/46 94 L 09/04/16 11:26 09/04/16 11:26 09/04/16 11:26 09/04/16 11:26 09/04/16 11:26 General appearance: Present: A&O X 3 (Confused at times) - Head Head exam: Present: atraumatic, normocephalic - Eye Eye exam: Present: PERRL, conjuntiva pink, sclera anicteric Pupils: Present: PERRL - Neck Neck exam general surgery: Present: supple, trachea midline. Absent: lymphadenopathy - Respiratory Respiratory exam: Present: decreased breath sounds, CTAB. Absent: accessory muscle use, rales, rhonchi, wheezes - Cardiovascular Cardiovascular exam: Present: RRR, +S1, +S2. Absent: diastolic murmur, gallop, rubs, systolic murmur - GI/Abdominal GI/Abdominal exam: Present: normal bowel sounds, soft, no peritoneal signs. Absent: distended, tenderness - Extremities Exam Extremities exam: Present: warm, radial pulses palpable and symetrical. Absent : calf tenderness, cyanotic, pedal edema - Neurological Exam Neurological exam: Present: CN II-XII intact, oriented X3, no focal deficits. Absent: pronater drift, facial droop, speech deficit - Skin Skin exam: Present: dry, intact Additional comments: Oneill catheter in place with very dark urine Internal Medicine: Result - Labs CBC & Chem 7: 09/04/16 03:32 09/04/16 03:32 Labs: Short CBC 09/04/16 Range/Units 03:32 WBC 17.8 H (4.3-11.1) K/mcL Hgb 12.9 (12.9-16.9) g/dL Hct 39.4 (37.5-50.1) % Plt Count 257 (140-400) K/mcL BMP 09/04/16 03:32 Sodium 135 L Potassium 4.2 Chloride 103 Carbon Dioxide 22 BUN 27 H Creatinine 1.27 H Glucose 107 H Calcium 9.0 - ABG Interpretation ABG results: PT/INR, D-dimer PT 28.3 Seconds (9.4-12.1) H 09/04/16 03:32 Consult Discharge Plan - Plan Referrals: J Carlos Cruz Jr, MD [Primary Care Provider] -
[2016-09-04] MEDS ORDERED: 0.9 % Sodium Chloride 1,000 ML IVC SCH (15:15)
--- NOTE | 2016-09-04 16:48 | Urology Progress Note ---
Date of Encounter: 09/04/16 Time of Encounter: 16:45 - Assessment and Plan (1) Gross hematuria Current Visit: Yes Status: Acute (2) Urinary retention Current Visit: Yes Status: Acute Assessment and plan: I recommend leaving the cath in place at discharge. If removed now I think he will develop recurrent retention. tamsulosin was stopped by [facility] bc of hypotension. Please prescribe uroxatrol 10 mg po qday at discharge. pt needs to watch BP closely and stop med if has recurrent issues with hypotension. followup next week in urology office. Progress Note Subjective: feels better Objective Initial Vital Signs Temp Pulse Resp BP Pulse Ox 99 F 76 18 90/57 99 09/02/16 12:18 09/02/16 12:18 09/02/16 12:18 09/02/16 12:18 09/02/16 12:18 - General physical appearance Present: well developed, no distress - Additional Exam urine clear - Labs 09/04/16 03:32 09/04/16 03:32 Diabetes panel 09/04/16 Range/Units 03:32 Sodium 135 L (136-145) mEq/L Potassium 4.2 (3.5-4.5) mEq/L Chloride 103 (98-109) mEq/L Carbon Dioxide 22 (19-29) mEq/L BUN 27 H (8-26) mg/dL Creatinine 1.27 H (0.72-1.25) mg/dL Glucose 107 H (70-99) mg/dL Calcium 9.0 (8.6-10.8) mg/dL Calcium panel 09/04/16 Range/Units 03:32 Calcium 9.0 (8.6-10.8) mg/dL Pituitary panel 09/04/16 Range/Units 03:32 Sodium 135 L (136-145) mEq/L Potassium 4.2 (3.5-4.5) mEq/L Chloride 103 (98-109) mEq/L Carbon Dioxide 22 (19-29) mEq/L BUN 27 H (8-26) mg/dL Creatinine 1.27 H (0.72-1.25) mg/dL Glucose 107 H (70-99) mg/dL Calcium 9.0 (8.6-10.8) mg/dL Adrenal panel 09/04/16 Range/Units 03:32 Sodium 135 L (136-145) mEq/L Potassium 4.2 (3.5-4.5) mEq/L Chloride 103 (98-109) mEq/L Carbon Dioxide 22 (19-29) mEq/L BUN 27 H (8-26) mg/dL Creatinine 1.27 H (0.72-1.25) mg/dL Glucose 107 H (70-99) mg/dL Calcium 9.0 (8.6-10.8) mg/dL Consult Discharge Plan - Plan Referrals: J Carlos Cruz Jr, MD [Primary Care Provider] -
[2016-09-05 04:40] LABS: Mean Corpuscular HGB Conc 32.4 g/dL (31.6-35.5); Mean Corpuscular Hemoglobin 27.6 pg (28.0-33.3); Mean Corpuscular Volume 85.1 fL (83.0-100.0); Mean Platelet Volume 10.8 fL (9.4-12.4); Platelet Count 266 K/mcL (140-400); Red Blood Count 4.35 M/mcL (4.19-5.50); Red Cell Distribution Width 15.9 % (11.5-14.5)
[2016-09-05 04:50] LABS: Prothrombin Time 21.9 Seconds (9.4-12.1)
[2016-09-05 05:40] LABS: BUN/Creatinine Ratio 19 (6-26); Blood Urea Nitrogen 20 mg/dL (8-26); Calcium 8.7 mg/dL (8.6-10.8); Carbon Dioxide 22 mEq/L (19-29); Chloride 105 mEq/L (98-109); Glucose 87 mg/dL (70-99); Osmolality,Calculated 284 (280-300); Potassium 4.1 mEq/L (3.5-4.5); Sodium 136 mEq/L (136-145); eGFR For African Americans > 60 (> 60); eGFR For Non-African Americans > 60 (> 60)
[2016-09-05 06:59] VITALS: BP 111/74
--- NOTE | 2016-09-05 07:39 | Discharge Summary ---
Date of Encounter: 09/05/16 Time of Encounter: 07:33 - Discharge Diagnosis (1) Acute prostatitis with hematuria Priority: Primary Status: Acute Comments: Sepsis secondary to acute prostatitis with hematuria (2) Acute cystitis with hematuria Priority: Secondary Status: Acute (3) Atrial fibrillation Priority: Secondary Status: Acute Qualifiers: Atrial fibrillation type: chronic Qualified Code(s): I48.2 - Chronic atrial fibrillation (4) BPH (benign prostatic hypertrophy) with urinary retention Priority: Secondary Status: Acute (5) Chronic systolic heart failure Priority: Secondary Status: Acute (6) Leukocytosis Priority: Secondary Status: Acute Qualifiers: Leukocytosis type: unspecified Qualified Code(s): D72.829 - Elevated white blood cell count, unspecified (7) UTI (urinary tract infection) Priority: Secondary Status: Acute Qualifiers: Urinary tract infection type: site unspecified Hematuria presence: with hematuria Qualified Code(s): N39.0 - Urinary tract infection, site not specified; R31.9 - Hematuria, unspecified (8) Anemia Priority: Secondary Status: Acute Comments: Acute blood loss anemia secondary to hematuria Qualifiers: Anemia type: unspecified type Qualified Code(s): D64.9 - Anemia, unspecified - Discharge Medications Prescriptions: OxyCODONE Immed Rel [Roxicodone 5 MG] 5 mg PO Q6HR PRN #20 tablet PRN Reason: Moderate Pain (4-6) Alfuzosin HCl [Uroxatral] 10 mg PO DAILY #30 tab.er.24h Cephalexin 500 mg PO Q6H #152 tablet Metoprolol XL (24 HR) Succ [Toprol Xl] 75 mg PO DAILY 30 Days Home Medications: Clopidogrel [Plavix] 75 mg PO DAILY 06/03/16 [History] Escitalopram [Lexapro] 20 mg PO DAILY 06/03/16 [History] Furosemide [Lasix] 40 mg PO DAILY 06/03/16 [History] Gabapentin [Neurontin] 1,200 mg PO BID 06/03/16 [History] Losartan Potassium [Cozaar] 50 mg PO DAILY 06/03/16 [History] Potassium Chloride [K-Tab ER] 20 meq PO BID 06/03/16 [History] Warfarin [Coumadin] 2.5 mg PO MOTH 06/03/16 [History] Warfarin [Coumadin] 5 mg PO SUTUWEFRSA 06/03/16 [History] Aspirin [Lo-Dose Aspirin EC] 81 mg PO DAILY 09/02/16 [History] Atorvastatin [Lipitor] 40 mg PO HS 09/02/16 [History] Alfuzosin HCl [Uroxatral] 10 mg PO DAILY #30 tab.er.24h 09/05/16 [Rx] Cephalexin 500 mg PO Q6H #152 tablet 09/05/16 [Rx] Metoprolol XL (24 HR) Succ [Toprol Xl] 75 mg PO DAILY 30 Days 09/05/16 [Rx] OxyCODONE Immed Rel [Roxicodone 5 MG] 5 mg PO Q6HR PRN #20 tablet 09/05/16 [Rx] Allergies/Adverse Reactions: Allergies No Known Allergies Allergy (Verified 06/03/16 08:52) Procedures/tests Complete & Pending: Procedures Performed prior 72 hours Category Date Time Status CT abd pelvis wo no iv no oral [CT] Routine Cat Scan 09/03/16 08:30 Draft Date of admission: 09/02/16 18:12 Primary care physician: J Carlos Cruz Jr, MD Consults: 09/02/16 20:18 Consult to Lining Presser [CONS] Routine Reason for SW Consult: no home oxygen and currenly needs supplemental oxygen , from home alone - Patient Status Disposition: Home Health Service Condition: Fair Overall status at discharge: patient is progressing back to baseline - Discharge Instructions Follow Up With: J Carlos Cruz Jr, MD [Primary Care Provider] - Additional Instructions: Follow with primary care physician within the next 7 days. Follow with urology within the next 10 days. Stop amlodipine and start Uroxatral. Hold Coumadin until next appointment with primary care physician. Keep Oneill catheter in place until next appointment with urology. Consider holding aspirin and Plavix if blood in urine recurs. Continue cephalexin until completing 6 weeks. Decrease dose of metoprolol XL from 100 mg daily down to 75 mg daily - Diet and Activity Activity: increase activity as tolerated Diet: low fat, low cholesterol Hospital course: Mr. Olguin is a 71 year old male with a past medical history of systolic CHF with ejection fraction of 30% AICD, CAD status post stent in the left main coronary artery., atrial fibrillation on Coumadin, hyperlipidemia, hypertension , into the emergency room very confused and inability to urinate for 2 days. Past very small amount of bloody urine at that time. Reported associated lower abdominal pain. The patient was diagnosed with a urinary tract infection and was started on Rocephin. His creatinine was found to be 1.75 and at the moment has decreased down to 1.08. Oneill catheter was placed as the patient was presenting with gross hematuria and Dr. Martinez from the urology service recommended to stop Flomax and to continue bladder irrigation. The patient's INR was 2.8 for which Coumadin was held. CT scan of the abdomen and pelvis showed extensive soft tissue stranding surrounding the urinary bladder and seminal vesicles related to possible prostatitis and cystitis. Presented with a White blood cell count of 24.7 and fever of 102.1 Urine culture was positive for Escherichia coli that is sensitive to ceftriaxone. The patient will receive his fourth dose of ceftriaxone today and will be discharged on cephalexin for 6 weeks due to a diagnosis of acute prostatitis. He had a few episodes of bradycardia for which his dose of Toprol will be decreased down to 75 mg daily and also his dose of amlodipine will be discontinued. The patient's warfarin will be held until the next appointment with urology. - Time Spent with Patient Total time spent providing and/or coordinating discharge services: Greater than 30 minutes (40 min) - Constitutional Vitals: Temp Pulse Resp BP Pulse Ox 97.8 F 47 16 111/74 92 L 09/05/16 06:58 09/05/16 06:58 09/05/16 06:58 09/05/16 06:58 09/05/16 06:58 General appearance: Present: A&O X 3 (Confused at times) - Head Head exam: Present: atraumatic, normocephalic - Eye Eye exam: Present: PERRL, conjuntiva pink, sclera anicteric Pupils: Present: PERRL - Neck Neck exam general surgery: Present: supple, trachea midline. Absent: lymphadenopathy - Respiratory Respiratory exam: Present: decreased breath sounds, CTAB. Absent: accessory muscle use, rales, rhonchi, wheezes - Cardiovascular Cardiovascular exam: Present: RRR, +S1, +S2. Absent: diastolic murmur, gallop, rubs, systolic murmur - GI/Abdominal GI/Abdominal exam: Present: normal bowel sounds, soft, no peritoneal signs. Absent: distended, tenderness - Extremities Exam Extremities exam: Present: warm, radial pulses palpable and symetrical. Absent : calf tenderness, cyanotic, pedal edema Additional comments: Oneill catheter in place, no hematuria evidenced - Neurological Exam Neurological exam: Present: CN II-XII intact, oriented X3, no focal deficits. Absent: pronater drift, facial droop, speech deficit - Skin Skin exam: Present: dry, intact
[2016-09-05] MEDS: Furosemide 40 MG TABLET PO SCH (07:44)
[2016-09-05] MEDS: Metoprolol XL (24 HR) Succ 50 MG TAB.ER.24H PO SCH (07:44)
[2016-09-05] MEDS: amLODIPine 5 MG TABLET PO SCH (07:44)
--- NOTE | 2016-09-05 07:53 | Physician Discharge Referral ---
Home Health/Hosp Referral Info Transfer to: Home Health Provider in Charge Post Discharge: PCP - Diagnosis (1) Acute prostatitis with hematuria Status: Acute (2) Acute cystitis with hematuria Status: Acute (3) Atrial fibrillation Status: Acute (4) BPH (benign prostatic hypertrophy) with urinary retention Status: Acute (5) Chronic systolic heart failure Status: Acute (6) Leukocytosis Status: Acute (7) UTI (urinary tract infection) Status: Acute (8) Anemia Status: Acute - Respiratory Orders Smoking Cessation: Smoking cessation has been advised. For more information, call the [place] Tobacco Quit Line at 3-184-UWNH-NOW. - Diet/Nutrition Diet/Nutrition Orders: Cardiac - Services Needed Following services are medically necessary services: Nursing, Home Health Aide Home Care Orders: Follow with primary care physician within the next 7 days. Follow with urology within the next 10 days. Stop amlodipine and start Uroxatral. Hold Coumadin until next appointment with primary care physician. Keep Oneill catheter in place until next appointment with urology. Consider holding aspirin and Plavix if blood in urine recurs. Continue cephalexin until completing 6 weeks. Decrease dose of metoprolol XL from 100 mg daily down to 75 mg daily - Transfer Medications Prescriptions: OxyCODONE Immed Rel [Roxicodone 5 MG] 5 mg PO Q6HR PRN #20 tablet PRN Reason: Moderate Pain (4-6) Alfuzosin HCl [Uroxatral] 10 mg PO DAILY #30 tab.er.24h Cephalexin 500 mg PO Q6H #152 tablet Metoprolol XL (24 HR) Succ [Toprol Xl] 75 mg PO DAILY 30 Days Home Medications: Clopidogrel [Plavix] 75 mg PO DAILY 06/03/16 [History] Escitalopram [Lexapro] 20 mg PO DAILY 06/03/16 [History] Furosemide [Lasix] 40 mg PO DAILY 06/03/16 [History] Gabapentin [Neurontin] 1,200 mg PO BID 06/03/16 [History] Losartan Potassium [Cozaar] 50 mg PO DAILY 06/03/16 [History] Potassium Chloride [K-Tab ER] 20 meq PO BID 06/03/16 [History] Warfarin [Coumadin] 2.5 mg PO MOTH 06/03/16 [History] Warfarin [Coumadin] 5 mg PO SUTUWEFRSA 06/03/16 [History] Aspirin [Lo-Dose Aspirin EC] 81 mg PO DAILY 09/02/16 [History] Atorvastatin [Lipitor] 40 mg PO HS 09/02/16 [History] Alfuzosin HCl [Uroxatral] 10 mg PO DAILY #30 tab.er.24h 09/05/16 [Rx] Cephalexin 500 mg PO Q6H #152 tablet 09/05/16 [Rx] Metoprolol XL (24 HR) Succ [Toprol Xl] 75 mg PO DAILY 30 Days 09/05/16 [Rx] OxyCODONE Immed Rel [Roxicodone 5 MG] 5 mg PO Q6HR PRN #20 tablet 09/05/16 [Rx] Allergies/Adverse Reactions: Allergies No Known Allergies Allergy (Verified 06/03/16 08:52) Certification: Further, I certify that my clinical findings support that this patient is homebound (i.e. absences from home require considerable and taxing effort and are for medical reasons or oriental orthodox services or infrequently or short duration when for other reasons) because: Homebound Reason: Patient requires assistance of a person or device to safely leave home Attestation: My signature below is to certify that this patient is under my care and that I, or nurse practitioner, or a physician's psychology assistant working with me, has a face-to -face encounter with this patient.
[2016-09-05] MEDS: Gabapentin 400 MG CAPSULE PO SCH (07:56)
[2016-09-05] MEDS: Aspirin Enteric Coated 81 MG Tablet PO SCH (07:56)
== END 2016-09-05 10:19 | disposition home health service (06) | DRG 872 ==
LOC: EMEROO 12:02 → 3BNU 12:02 → SUATTDRO 18:12
PROVIDERS: ADMIT Nurse Practitioner Family; ATTEND Internal Medicine

== ENCOUNTER 2016-09-07 09:24 | Inpatient (IN) ==
[2016-09-07] MEDS ORDERED: methylPREDNISolone 125 MG/2 ML VIAL IVP ONE (09:30)
[2016-09-07] MEDS ORDERED: Famotidine 20 MG/2 ML VIAL IVP ONE (09:30)
--- NOTE | 2016-09-07 09:52 | Emergency Department Note ---
Disposition Clinical Impression: Angioedema Qualifiers: Encounter type: initial encounter Qualified Code(s): T78.3XXA - Angioneurotic edema, initial encounter Altered mental status Qualifiers: Altered mental status type: transient alteration of awareness Qualified Code(s) : R40.4 - Transient alteration of awareness Disposition: Admitted As Inpatient Condition: Critical Time of Disposition: 10:45 Allergic Reaction HPI - General Stated complaint: Tongue swelling Time Seen by Provider: 09/07/16 09:30 Source: patient Limitations: no limitations Nursing Notes Reviewed: Yes Vital Signs Reviewed: Yes - History of Present Illness HPI Narrative: Patient is a 71-year-old male who presents to [facility] ED with a chief complaint of tongue swelling. States his symptoms started around 7 AM this morning when he woke up. He went to take his medications for the morning and noticed all the swelling. Patient was recently hospitalized at [facility] with congestive heart failure. He has a pacemaker in and had the batteries changed. He also had a left heart catheter and had a stent placed. This was complicated by getting urinary tract infection with Escherichia coli. He had a Oneill catheter placed and was supposed to be getting this out today. Apparently he has been continuously confused ever since he was at [facility]. [facility] wanted him to be admitted up there yesterday evening. However patient had refused to come. Apparently [facility] is requesting that we transfer him up there once he is stabilized down here. Only new medications which she has taken for 2 days now are Alfuzosin HCL 10 mg daily and Cephalexin 500mg q6h. Pt Subjective Complaint: other (tongue swelling) Onset (ago): hour(s) Exposure: medication Symptoms: Reports: tongue swelling Severity: moderate Treatment prior to arrival: none Previous Allergic Reaction History: other (prior large hives) - Related Data Home Medications Medication Instructions Recorded Confirmed Clopidogrel [Plavix] 75 mg PO DAILY 06/03/16 09/07/16 Escitalopram [Lexapro] 20 mg PO DAILY 06/03/16 09/07/16 Furosemide [Lasix] 40 mg PO DAILY 06/03/16 09/07/16 Gabapentin [Neurontin] 1,200 mg PO BID 06/03/16 09/07/16 Losartan Potassium [Cozaar] 50 mg PO DAILY 06/03/16 09/07/16 Potassium Chloride [K-Tab ER] 20 meq PO BID 06/03/16 09/07/16 Warfarin [Coumadin] 2.5 mg PO MOTH 06/03/16 09/07/16 Warfarin [Coumadin] 5 mg PO SUTUWEFRSA 06/03/16 09/07/16 Aspirin [Lo-Dose Aspirin EC] 81 mg PO DAILY 09/02/16 09/07/16 Atorvastatin [Lipitor] 40 mg PO HS 09/02/16 09/07/16 Previous Rx's Medication Instructions Recorded Alfuzosin HCl [Uroxatral] 10 mg PO DAILY #30 tab.er.24h 09/05/16 Cephalexin 500 mg PO Q6H #152 tablet 09/05/16 Metoprolol XL (24 HR) Succ [Toprol 75 mg PO DAILY 30 Days 09/05/16 Xl] OxyCODONE Immed Rel [Roxicodone 5 5 mg PO Q6HR PRN #20 tablet 09/05/16 MG] Allergies Allergy/AdvReac Type Severity Reaction Status Date / Time No Known Allergies Allergy Verified 06/03/16 08:52 All systems ED: reviewed and negative except as stated. Past Medical History - Past Medical History Attestation: Yes The following information was validated with the patient. Source: patient Medical history: Reports: atrial fibrillation, CHF, coronary artery disease, hyperlipidemia, hypertension Surgical history: Reports: other Psychiatric history: Reports: depression - Social History Smoking Status: Never smoker Smokeless Tobacco Status: No Alcohol use: Reports: none Drug use: Reports: none Physical Exam - General Limitations: no limitations General appearance: alert - Head Head exam: atraumatic, normocephalic, normal inspection - Eye Eye exam: Present: normal appearance, PERRL, EOMI - Expanded ENT Exam Mouth exam: Present: tounge swelling - Neck Neck exam: Present: normal inspection, full ROM, trachea midline - Chest Chest inspection: Present: normal inspection, symmetric chest wall rise - Respiratory Respiratory exam: Present: normal lung sounds bilaterally - Cardiovascular Cardiovascular exam: Present: regular rate, normal rhythm, normal heart sounds - Abdominal Exam Abdominal exam: Present: soft, Non-Tender. Absent: tenderness, distention, guarding, rebound, rigidity - Extremities Exam Extremities exam: Present: normal inspection, full ROM. Absent: tenderness, pedal edema - Back Exam Back exam: Present: normal inspection, full ROM. Absent: tenderness - Neurological Exam Neurological exam: Present: alert, oriented X3 - Psychiatric Psychiatric exam: Present: normal affect, normal mood - Skin Skin exam: Present: warm, dry, intact, normal color Course Course Narrative: Patient seen and examined. Tongue swelling for the last hour. His lungs are clear bilaterally and no stridor is heard in the upper airway. He does have a swollen tongue though I am able to visualize to the back of his throat. He is able to breathe without difficulty at this time though he does feel slightly short of breath due to the swollen tongue. No prior episodes of this. Vital signs stable. No other signs of anaphylaxis. Plan: Placed an IV, 25 mg Solu- Medrol, 20 mg Pepcid, 50 mg Benadryl. She apparently patient has also been altered ever since his recent [facility] stay and are requesting transfer to [facility] once we have him stabilized here. Altered mental status labs ordered as well. - Reevaluation(s) Reevaluation #1: At approximately 1040, I went to check on the patient and he stated he was feeling slightly worse. His airway does not look too different from what it has been in has not improved any. Since he is feeling fairly worse, we will go ahead and intubate him. Anesthesia was called over to help with an awake fiberoptic intubation. They came to evaluate him at bedside and decided to intubate him in the OR. He was transferred to OR 1. Patient requested that he stay at [facility] and did not want to be transferred up to [facility]. Dr. Bonilla spoke with Dr. Blackburn who accepted patient for admission to the ICU. Time: 11:49 Vital Signs Temperature 97.3 F L 09/07/16 09:42 Pulse Rate 86 09/07/16 09:42 Respiratory Rate 20 09/07/16 09:42 Blood Pressure 137/76 09/07/16 09:42 O2 Sat by Pulse Oximetry 96 09/07/16 09:42 Temperature 98.1 F 09/07/16 11:45 Pulse Rate 79 09/07/16 13:30 Respiratory Rate 16 09/07/16 13:30 Blood Pressure 106/69 09/07/16 13:30 O2 Sat by Pulse Oximetry 97 09/07/16 13:30 Oxygen Delivery Oxygen Delivery Room Air Allergic Reaction - Medical Records Medical records reviewed: Yes I reviewed the patient's medical records. - Lab Data Lab results reviewed: Yes I reviewed the patient's lab results. Result diagrams: 09/07/16 10:19 09/07/16 10:19 Lab Results 09/07/16 09/07/16 09/07/16 Range/Units 10:15 10:19 10:19 WBC 10.8 (4.3-11.1) K/mcL RBC 5.10 (4.19-5.50) M/mcL Hgb 13.8 D (12.9-16.9) g/dL Hct 42.7 (37.5-50.1) % MCV 83.7 (83.0-100.0) fL MCH 27.1 L (28.0-33.3) pg MCHC 32.3 (31.6-35.5) g/dL RDW 15.9 H (11.5-14.5) % Plt Count 347 (140-400) K/mcL MPV 10.0 (9.4-12.4) fL Immature Gran % 0.7 (0-4) % Seg Neutrophils % 68.5 % Lymphocytes % 14.9 % Monocytes % 9.4 % Eosinophils % 6.0 % Basophils % 0.5 % Neutrophils # 7.4 (1.6-8.9) K/mcL Lymphocytes # 1.6 (0.6-4.6) K/mcL Monocytes # 1.0 (0.0-1.3) K/mcL Eosinophils # 0.6 (0.0-0.6) K/mcL Basophils # 0.1 (0.0-0.2) K/mcL PT 19.5 H (9.4-12.1) Seconds INR 1.8 APTT 30.5 (26.0-36.0) Seconds Sodium (136-145) mEq/L Potassium (3.5-4.5) mEq/L Chloride (98-109) mEq/L Carbon Dioxide (19-29) mEq/L BUN (8-26) mg/dL Creatinine (0.72-1.25) mg/dL Est GFR ( Amer) (> 60) Est GFR (Non-Af Amer) (> 60) BUN/Creatinine Ratio (6-26) Glucose (70-99) mg/dL Calculated Osmolality (280-300) Lactic Acid (0.5-2.2) mmol/L Calcium (8.6-10.8) mg/dL Total Bilirubin (0.2-1.2) mg/dL Direct Bilirubin (0.0-0.5) mg/dL Indirect Bilirubin (0.0-1.2) mg/dL AST (5-34) Units/L ALT (0-55) Units/L Alkaline Phosphatase (38-126) Units/L Ammonia 21 (18-72) mcmol/L Troponin I (0-0.03) ng/mL Serum Total Protein (6.0-8.3) g/dL Albumin (3.5-5.0) g/dL Globulin (2.4-3.5) g/dL Albumin/Globulin Ratio (1.1-2.2) 09/07/16 09/07/16 09/07/16 Range/Units 10:19 10:19 10:21 WBC (4.3-11.1) K/mcL RBC (4.19-5.50) M/mcL Hgb (12.9-16.9) g/dL Hct (37.5-50.1) % MCV (83.0-100.0) fL MCH (28.0-33.3) pg MCHC (31.6-35.5) g/dL RDW (11.5-14.5) % Plt Count (140-400) K/mcL MPV (9.4-12.4) fL Immature Gran % (0-4) % Seg Neutrophils % % Lymphocytes % % Monocytes % % Eosinophils % % Basophils % % Neutrophils # (1.6-8.9) K/mcL Lymphocytes # (0.6-4.6) K/mcL Monocytes # (0.0-1.3) K/mcL Eosinophils # (0.0-0.6) K/mcL Basophils # (0.0-0.2) K/mcL PT (9.4-12.1) Seconds INR APTT (26.0-36.0) Seconds Sodium 140 (136-145) mEq/L Potassium 4.3 (3.5-4.5) mEq/L Chloride 107 (98-109) mEq/L Carbon Dioxide 22 (19-29) mEq/L BUN 14 (8-26) mg/dL Creatinine 1.20 (0.72-1.25) mg/dL Est GFR ( Amer) > 60 (> 60) Est GFR (Non-Af Amer) 60 (> 60) BUN/Creatinine Ratio 12 (6-26) Glucose 112 H (70-99) mg/dL Calculated Osmolality 291 (280-300) Lactic Acid 1.3 (0.5-2.2) mmol/L Calcium 9.5 (8.6-10.8) mg/dL Total Bilirubin 1.3 H (0.2-1.2) mg/dL Direct Bilirubin 0.6 H (0.0-0.5) mg/dL Indirect Bilirubin 0.7 (0.0-1.2) mg/dL AST 80 H (5-34) Units/L ALT 132 H (0-55) Units/L Alkaline Phosphatase 100 (38-126) Units/L Ammonia (18-72) mcmol/L Troponin I 0.02 (0-0.03) ng/mL Serum Total Protein 6.8 (6.0-8.3) g/dL Albumin 3.0 L (3.5-5.0) g/dL Globulin 3.8 H (2.4-3.5) g/dL Albumin/Globulin Ratio 0.8 L (1.1-2.2) Attestation Statement - Attestation Attestation: I examined this patient and my medical decision-making was reviewed with the SPED TEACHER/PA/Advanced Practice Nurse/Resident Physician. I agree with the documented findings, disposition and treatment plan as described except to the extent set forth below. Patient presents to emergency department complaining of tongue swelling. Onset this morning. Family states he has a history of hives. Never had swelling to the tongue. He is on angiotensin receptor al. On examination he is in no distress. He is a moderate amount of swelling to the right side of his tongue. He is not short of breath. His lungs are clear. Plan. Benadryl, Solu-Medrol , and Pepcid. 1033. Patient reevaluated. Patient states he does not feel like he is any worse. Son states he feels like his breathing is getting worse. Patient still awake and alert. Swelling still mostly localized to the right side of his tongue. Satting well on room air. Anesthesia: To assist with nasal intubation. Evaluated by anesthesia and wanted taken to the OR. Patient taken over by anesthesia. ICU doctor notified of admission.. 30 minutes of critical care exclusive of separately billable procedures.
[2016-09-07 10:28] LABS: Basophils # 0.1 K/mcL (0.0-0.2); Basophils % 0.5 %; Eosinophils # 0.6 K/mcL (0.0-0.6); Hematocrit 42.7 % (37.5-50.1); Immature Granulocytes % 0.7 % (0-4); Lymphocytes # 1.6 K/mcL (0.6-4.6); Lymphocytes % 14.9 %; Mean Corpuscular HGB Conc 32.3 g/dL (31.6-35.5); Mean Corpuscular Hemoglobin 27.1 pg (28.0-33.3); Mean Corpuscular Volume 83.7 fL (83.0-100.0); Monocytes % 9.4 %; Neutrophils # 7.4 K/mcL (1.6-8.9); Platelet Count 347 K/mcL (140-400); Red Cell Distribution Width 15.9 % (11.5-14.5); Segmented Neutrophils % 68.5 %
[2016-09-07 10:31] LABS: Hemoglobin 13.8 g/dL (12.9-16.9)
[2016-09-07 10:35] LABS: INR 1.8; Prothrombin Time 19.5 Seconds (9.4-12.1)
[2016-09-07 10:38] LABS: Activated Partial Thrombo Time 30.5 Seconds (26.0-36.0)
[2016-09-07] MEDS ORDERED: Lidocaine TOPICAL Soln 50 ML BOTTLE ONE (10:40)
[2016-09-07 10:42] LABS: Alanine Aminotransferase 132 Units/L (0-55); Albumin/Globulin Ratio 0.8 (1.1-2.2); Alkaline Phosphatase 100 Units/L (38-126); Aspartate Amino Transferase 80 Units/L (5-34); BUN/Creatinine Ratio 12 (6-26); Bilirubin,Direct 0.6 mg/dL (0.0-0.5); Bilirubin,Indirect 0.7 mg/dL (0.0-1.2); Bilirubin,Total 1.3 mg/dL (0.2-1.2); Blood Urea Nitrogen 14 mg/dL (8-26); Calcium 9.5 mg/dL (8.6-10.8); Carbon Dioxide 22 mEq/L (19-29); Chloride 107 mEq/L (98-109); Globulin 3.8 g/dL (2.4-3.5); Glucose 112 mg/dL (70-99); Osmolality,Calculated 291 (280-300); Potassium 4.3 mEq/L (3.5-4.5); Sodium 140 mEq/L (136-145); Total Protein 6.8 g/dL (6.0-8.3); eGFR For African Americans > 60 (> 60); eGFR For Non-African Americans 60 (> 60)
[2016-09-07] MEDS ORDERED: *HR* Midazolam HCl 2 MG/2 ML VIAL IVP ONE (10:42)
[2016-09-07] MEDS ORDERED: Propofol 500 MG/50 ML INFUS..BTL ONE (10:43)
[2016-09-07] MEDS ORDERED: Propofol 500 MG/50 ML INFUS..BTL IVC SCH (10:45)
[2016-09-07] MEDS ORDERED: *HR* Remifentanil 2 MG VIAL IVP ONE (10:51)
[2016-09-07] MEDS ORDERED: Lidocaine -MPF 4% 5 ML AMPUL ONE ×2 (10:56→11:14)
[2016-09-07] MEDS ORDERED: Hydrocortisone Sodium Succ 100 MG/2 ML VIAL ONE (11:04)
[2016-09-07] MEDS ORDERED: Famotidine 20 MG/2 ML VIAL ONE (11:04)
[2016-09-07] MEDS ORDERED: *HR* Phenylephrine 10 MG/ML VIAL ONE (11:14)
[2016-09-07] MEDS ORDERED: Lidocaine -MPF 2% 2 ML VIAL ONE (11:15)
--- NOTE | 2016-09-07 11:21 | Anesthesia Evaluation PreOp ---
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 History: Denies Any Significant HX Other Medical History: Denies Any Significant HX Anesthesia History: No Prior Anesthetic Complications, Past Anesthesia Alcohol Use: none Drug use: none Medications and Allergies Clopidogrel [Plavix] 75 mg PO DAILY 06/03/16 [History] Escitalopram [Lexapro] 20 mg PO DAILY 06/03/16 [History] Furosemide [Lasix] 40 mg PO DAILY 06/03/16 [History] Gabapentin [Neurontin] 1,200 mg PO BID 06/03/16 [History] Losartan Potassium [Cozaar] 50 mg PO DAILY 06/03/16 [History] Potassium Chloride [K-Tab ER] 20 meq PO BID 06/03/16 [History] Warfarin [Coumadin] 2.5 mg PO MOTH 06/03/16 [History] Warfarin [Coumadin] 5 mg PO SUTUWEFRSA 06/03/16 [History] Aspirin [Lo-Dose Aspirin EC] 81 mg PO DAILY 09/02/16 [History] Atorvastatin [Lipitor] 40 mg PO HS 09/02/16 [History] Alfuzosin HCl [Uroxatral] 10 mg PO DAILY #30 tab.er.24h 09/05/16 [Rx] Cephalexin 500 mg PO Q6H #152 tablet 09/05/16 [Rx] Metoprolol XL (24 HR) Succ [Toprol Xl] 75 mg PO DAILY 30 Days 09/05/16 [Rx] OxyCODONE Immed Rel [Roxicodone 5 MG] 5 mg PO Q6HR PRN #20 tablet 09/05/16 [Rx] Allergies No Known Allergies Allergy (Verified 06/03/16 08:52) - Meds/Allergy Pre-op Review Medications Reviewed: Yes Allergies Reviewed: Yes Beta Blockers on Current Med List: No Anesthesia Results - Labs 09/07/16 10:19 09/07/16 10:19 - Imaging EKG: 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 reviewed (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 projects administrator) Anesthesia Exam Vital Signs/O2 Sat/Glucose, Most Current Temp Pulse Resp BP Pulse Ox 09/07/16 11:16 0 0/0 09/07/16 10:44 83 20 109/48 96 09/07/16 09:42 97.3 F L 86 20 137/76 96 Height: 1.83 Weight: 125 - HEENT Pupil (Motor): Pupils equal, EOMI Mallampati: II (pt is edent, he is not dyspnic but he does have glossomegaly) - ELECTRONICS TEACHER LOC: Oriented ELECTRONICS TEACHER Motor: Normal RUE, Normal LUE, Normal RLE, Normal LLE, Normal Face ELECTRONICS TEACHER Sensory: Normal: RUE, LUE, RLE, LLE, Face - Cardiac Rhythm: Regular Murmur: None - Pulmonary Breath Sounds: bilateral Clear Respiratory Effort: Symmetrical Anesthesia Assess/Plan ASA Score: 5, E (pt seen in ED, s/p ARB now with angioedema. unable visulaize palate 2/2 glossomegaly. We immediately rushed pt to OR for STAT awake FOI. Along the way I noticed he had a CIED and he told me he had some "heart problems and rhythm problems", he stated had nkda and he had no significant other PMH. Most of the rest of this preop was perfomed after emergency intubation and from medical records here at [facility]) Modified Sterling Scale for Level of Consciousness: Cooperative, oriented, and tranquil Monitoring Plan: Standard Monitors Recovery Plan: ICU
--- NOTE | 2016-09-07 11:31 | Anesthesia Progress Note ---
Date of Encounter: 09/07/16 Time of Encounter: 11:25 Anesthesia Note - Note Note: 09/07/16 11:25 pt taken STAT to OR for awake FOI. ENT paged STAT overhead (unavailable). GEN Surgery paged STAT, Yang Hernandez Baker present during procedure for potential emergency trach. OR staff set up for emergency track. During this time, pt was prepped for Awake FOI. HOB was elevated, high flow NC and oxygen mask were placed for preox. Pt given glycopyrrolat 0.2mg IV, remifentanyl gtt and nasal/oral pharynx prepped with devilbiss atomizer 4%lidocaine. Cords were visualized, epidural catheter placed through the cords, 1 cc 4% lidocaine given. FO removed, 30 seconds elapsed, VSS, FOI with no stress and propofol given and pt elieser procedure well. Placement of ETT verified with bilat bs, et CO2, paplapation of cuff in sternal notch and fiberoptically. Transferred to ICU with remifent and phenylephrine gtt. Report given to furnace attendant (who was present for procedure) and FABRIC SEPARATOR OPERATOR.
[2016-09-07] MEDS: Phenylephrine 10 MG in D5% in Water 250 ML IVC SCH ×2 (12:00→13:50)
[2016-09-07] MEDS ORDERED: FentaNYL (PF) 1,000 MCG in 0.9 % Sodium Chloride 80 ML IVC SCH (12:00)
--- NOTE | 2016-09-07 13:37 | Procedure Note ---
<Nir Lawrence - Last Filed: 09/07/16 13:27> Date of procedure: 09/07/16 Pre-op diagnosis: Hypotension Post-op diagnosis: same Procedure: A time-out was completed verifying correct patient, procedure, site, positioning , and special equipment if applicable. The patient was placed in a dependent position appropriate for central line placement based on the vein to be cannulated. The patients left groin was prepped and draped in sterile fashion. 1 % Lidocaine was used to anesthetize the surrounding skin area. A triple lumen Cordis catheter was introduced into the the common femoral vein using the Seldinger technique and under ultrasound guidance. The catheter was threaded smoothly over the guide wire and appropriate blood return was obtained. Each lumen of the catheter was evacuated of air and flushed with sterile saline. The catheter was then sutured in place to the skin and a sterile dressing applied. Perfusion to the extremity distal to the point of catheter insertion was checked and found to be adequate. Attending and Resident present for the entire procedure. The patient tolerated the procedure well and there were no complications. Anesthesia: local (1% lidocaine), IV sedation (Fentanyl) Surgeon: Hector Blackburn Velvet Steamer: Nir Lawrence Estimated blood loss (cc): 5 IV fluids (cc): 0 Urine output (cc): 0 Pathology: none sent Condition: critical Disposition: ICU <Hector Blackburn - Last Filed: 09/07/16 16:57> Procedure: Central line was placed for shock and before transfer to [facility] for vasopressors. Patient tolerated procedure without immediate complications.
--- NOTE | 2016-09-07 14:12 | Pulmonology History & Physical ---
<Nir Lawrence - Last Filed: 09/07/16 15:45> Date of Encounter: 09/07/16 Time of Encounter: 13:00 Assessment and Plan (1) Severe tongue swelling Status: Acute Worsening swelling, anesthesia called to evaluate for intubation. Patient received enadryl, Solu-medrol, and pepcid in ED. Anesthesia recommend intubation completed in OR. Once intubated patient brought to ICU 3, sedated, on mechanical ventilation. Pending transfer to [facility]. (2) Angioedema Status: Acute Mainly effecting tongue. See plan above. Qualifiers: Encounter type: initial encounter Qualified Code(s): T78.3XXA - Angioneurotic edema, initial encounter (3) Atrial fibrillation Status: Acute On Warfarin 5mg //// and 2.5 mg on /. Qualifiers: Atrial fibrillation type: chronic Qualified Code(s): I48.2 - Chronic atrial fibrillation (4) Chronic systolic heart failure Status: Acute Recently seen at [facility] for CHF. Noted to have pacemaker Currently on BB, statin, lasix, plavix, and ARB. (5) Coronary artery disease Status: Acute CAD s/p PCI with stent placement. Currently on B, statin, ARB, plavix. ASA prescribed, but patient not taken with history of hives associated to use. Qualifiers: Coronary Disease-Associated Artery/Lesion type: viejas artery [place] vs. transplanted heart: viejas heart Associated angina: without angina Qualified Code(s): I25.10 - Atherosclerotic heart disease of viejas coronary artery without angina pectoris (6) Essential hypertension Status: Chronic Currently on Losartan at home. Currently on phenylephrine drip- MAP approx 70. (7) UTI (urinary tract infection) Status: Acute Diagnosed with UTI with recent admission to [facility] for CHF. Found to have Escherichia coli; Oneill catheter placed and was supposed to be getting this out today. Oneill left in place pending transfer to [facility] today. Qualifiers: Urinary tract infection type: site unspecified Hematuria presence: with hematuria Qualified Code(s): N39.0 - Urinary tract infection, site not specified; R31.9 - Hematuria, unspecified History of Present Illness Chief complaint: Tongue swelling HPI: Mr. Olguin is a 71 year old male who presents to [facility] ED with a chief complaint of tongue swelling. When I was evaulating patient he was intubated and sedated on mechanical ventilation, awaiting transfer to [facility]. ED report reveals symptoms started around 7 AM this morning when he awoke. He had gone to take his medications for the morning and noticed the swelling. Patient was recently hospitalized at [facility] with congestive heart failure. Has a pacemaker, had a left heart catheter, and had a stent placed. This was noted to be complicated by urinary tract infection with Escherichia coli. He had a Oneill catheter placed and was supposed to be getting this out today pre the ED report. Family noting confused ever since he was at [facility]. [facility] requesting transfer once he is stabilized. Only new medications recently taken include Alfuzosin HCL 10 mg daily and Cephalexin 500mg q6h. History of hives/swelling, last episode 10+ years ago, thought to be associated with ASA reaction in the past. Past Med Surg Social Fam HX - Past Medical History Source: old records reviewed Medical history: atrial fibrillation, CHF, coronary artery disease, hyperlipidemia, hypertension Psychiatric history: depression - Past Surgical History Surgical History: other - Social History Smoking Status: Never smoker Smokeless Tobacco Status: No Alcohol use: none Drug use: none - Family History Mother Living Status: Father Living Status: Hx Family Cardiac Disorders: Yes Medications and Allergies Clopidogrel [Plavix] 75 mg PO DAILY 06/03/16 [History] Escitalopram [Lexapro] 20 mg PO DAILY 06/03/16 [History] Furosemide [Lasix] 40 mg PO DAILY 06/03/16 [History] Gabapentin [Neurontin] 1,200 mg PO BID 06/03/16 [History] Losartan Potassium [Cozaar] 50 mg PO DAILY 06/03/16 [History] Potassium Chloride [K-Tab ER] 20 meq PO BID 06/03/16 [History] Warfarin [Coumadin] 2.5 mg PO MOTH 06/03/16 [History] Warfarin [Coumadin] 5 mg PO [id number] 06/03/16 [History] Aspirin [Lo-Dose Aspirin EC] 81 mg PO DAILY 09/02/16 [History] Atorvastatin [Lipitor] 40 mg PO HS 09/02/16 [History] Alfuzosin HCl [Uroxatral] 10 mg PO DAILY #30 tab.er.24h 09/05/16 [Rx] Cephalexin 500 mg PO Q6H #152 tablet 09/05/16 [Rx] Metoprolol XL (24 HR) Succ [Toprol Xl] 75 mg PO DAILY 30 Days 09/05/16 [Rx] OxyCODONE Immed Rel [Roxicodone 5 MG] 5 mg PO Q6HR PRN #20 tablet 09/05/16 [Rx] Allergies No Known Allergies Allergy (Verified 06/03/16 08:52) ROS unobtainable: due to endotracheal tube (and sedated) All Systems: A 10-system review of systems was performed and is negative for pertinent findings except as documented above in the HPI. Physical Examination Vital Signs: Vital Signs, Last 4 Hours Temp Pulse Resp BP Pulse Ox 09/07/16 12:00 80 27 73/61 100 09/07/16 11:45 98.1 F 78 15 78/21 100 09/07/16 11:40 18 78/ 100 09/07/16 11:16 0 0/0 General appearance: other (sedated) ENT: oropharynx moist, other (tongue swollen and protuding from oropharynx) Effort: other (mechanical ventilation) Inspection: normal Cardiovascular: other (tachycardia) Gastrointestinal: normoactive bowel sounds, soft, non-distended Integumentary: normal Extremities: no cyanosis, no clubbing, pink and warm Musculoskeletal: no deformities unable to assess due to mental status (sedation, intubated, mechancial ventilation.) Oneill in place with pale yellow urine noted. Results - Laboratory Findings CBC and BMP: 09/07/16 10:19 09/07/16 10:19 PT/INR, D-dimer PT 19.5 Seconds (9.4-12.1) H 09/07/16 10:19 Abnormal lab findings: Abnormal lab results MCH 27.1 pg (28.0-33.3) L 09/07/16 10:19 RDW 15.9 % (11.5-14.5) H 09/07/16 10:19 PT 19.5 Seconds (9.4-12.1) H 09/07/16 10:19 Glucose 112 mg/dL (70-99) H 09/07/16 10:19 Total Bilirubin 1.3 mg/dL (0.2-1.2) H 09/07/16 10:19 Direct Bilirubin 0.6 mg/dL (0.0-0.5) H 09/07/16 10:19 AST 80 Units/L (5-34) H 09/07/16 10:19 ALT 132 Units/L (0-55) H 09/07/16 10:19 Albumin 3.0 g/dL (3.5-5.0) L 09/07/16 10:19 Globulin 3.8 g/dL (2.4-3.5) H 09/07/16 10:19 Albumin/Globulin Ratio 0.8 (1.1-2.2) L 09/07/16 10:19 <Hector Blackburn M - Last Filed: 09/07/16 17:20> History of Present Illness HPI: Mr. Olguin is a 71 year old male All Systems: A 10-system review of systems was performed and is negative for pertinent findings except as documented above in the HPI. Physical Examination Vital Signs: Vital Signs, Last 4 Hours Pulse Resp BP Pulse Ox 09/07/16 13:30 79 16 106/69 97 Results - Laboratory Findings CBC and BMP: 09/07/16 10:19 09/07/16 10:19 PT/INR, D-dimer PT 19.5 Seconds (9.4-12.1) H 09/07/16 10:19 Abnormal lab findings: Abnormal lab results MCH 27.1 pg (28.0-33.3) L 09/07/16 10:19 RDW 15.9 % (11.5-14.5) H 09/07/16 10:19 PT 19.5 Seconds (9.4-12.1) H 09/07/16 10:19 Glucose 112 mg/dL (70-99) H 09/07/16 10:19 Total Bilirubin 1.3 mg/dL (0.2-1.2) H 09/07/16 10:19 Direct Bilirubin 0.6 mg/dL (0.0-0.5) H 09/07/16 10:19 AST 80 Units/L (5-34) H 09/07/16 10:19 ALT 132 Units/L (0-55) H 09/07/16 10:19 Albumin 3.0 g/dL (3.5-5.0) L 09/07/16 10:19 Globulin 3.8 g/dL (2.4-3.5) H 09/07/16 10:19 Albumin/Globulin Ratio 0.8 (1.1-2.2) L 09/07/16 10:19 - Attending Attestation I examined this patient and my medical decision-making was reviewed with the LITERACY COACH/PA/Advanced Practice Nurse/Resident Physician. I agree with the documented findings, disposition and treatment plan as described except to the extent set forth below. Patient seen and examined. Labs, radiology, chart personally reviewed. Agree with resident's history and physical, assessment, plan with following comments: TREE [employer]ING [employer]ER: Patient follows commands, Pulmonary: Acceptable oxygenation and ventilation. Patient was intubated in the operating room by the anesthesiologist fiberoptic clean due to his significant swelling of the tongue and a talked to the son who stated patient has been at [facility] and they are asking for patient to be transferred to [facility] for further management mainly due to his underlying cardiomyopathy with systolic heart failure. Apparently patient was treated with antibiotics and even though he does not have allergies to penicillin. Had reaction and other differential diagnosis angioedema secondary to ACI/ARBs. After intubation I performed bronchoscopy to confirm location of the ET tube which was secured by anesthesia team then he was transferred to ICU. Family requested patient to be transferred to [facility] and then they talked to the physician in the [facility] intensive care unit, who requested central line placement for his hypotensive/shock which was done after talking to the family. I also changed his vent setting mostly to have pressure support which was much more comfortable for patient synchrony. Patient was given Pepcid, hydrocortisone, Benadryl for his angioedema. Cardiovascular: Unstable after intubation which could be from his underlying cardiomyopathy or side effects of medication and sedation. GI: Nutrition per dietary and GI prophylaxis per routine. Patient nothing by mouth for now Heme: DVT prophylaxis per routine ID: Antibiotics to be decided when patient is in [facility] ICU. I would recommend to avoid antibiotics he was prescribed. Renal; urine out put and renal funtion reviewed Endorcine: blood glucose is monitored Lines: all lines checked and no evidence of infections Skin: skin care to prevent pressure ulcers per nursing routine care I spent 80 min of Critical Care time with this patient. It involved decision making of high complexity to assess, manipulate, and support vital organ system failure and/or to prevent further life threatening deterioration of the patient' s condition. The time involved in the performance of separately reportable procedures was not counted toward critical care time.
[2016-09-07 14:13] VITALS: BP 106/69
== END 2016-09-07 13:54 | disposition short-term general hospital (02) | DRG 916 ==
LOC: EMEROO 09:24 → ICNU 10:57
PROVIDERS: ADMIT Internal Medicine Pulmonary Disease; ATTEND Internal Medicine Pulmonary Disease

== ENCOUNTER 2016-11-24 12:44 | Observation (INO) ==
--- NOTE | 2016-11-24 14:19 | Emergency Department Note ---
Disposition Clinical Impression: Anticoagulated on warfarin Congestive heart failure Qualifiers: Congestive heart failure type: unspecified congestive heart failure type Congestive heart failure chronicity: unspecified congestive heart failure chronicity Qualified Code(s): I50.9 - Heart failure, unspecified Cardiomyopathy Qualifiers: Cardiomyopathy type: unspecified Qualified Code(s): I42.9 - Cardiomyopathy, unspecified Dyspnea Qualifiers: Dyspnea type: unspecified Qualified Code(s): R06.00 - Dyspnea, unspecified Disposition: Admitted As Inpatient Condition: Fair Time of Disposition: 15:41 SOB HPI - General Chief Complaint: ED Shortness of Breath/Dyspnea Stated Complaint: GIORGIO CHF PT Time Seen by Provider: 11/24/16 12:55 Source: patient Limitations: no limitations Nursing Notes Reviewed: Yes Vital Signs Reviewed: Yes - History of Present Illness Patient presents to the ED with the chief complaint of shortness of breath. Patient states that he has a history of severe coronary artery disease and CHF. He is followed at the [facility] in their CHF clinic. He also has an AICD. Patient's family member states that patient has been having runs of nonsustained V. tach while at cardiac rehabilitation and was told to stop rehabilitation at this point. He is scheduled for an outpatient echocardiogram in 3 days. States that he gained 3 pounds since yesterday. He states that he could feel the fluid building up on his heart again, so he took an extra Lasix pill today. Took 80 mg prior to arrival, but just wanted to come get checked out because she wants to avoid having difficulty breathing. Does not have any chest pain currently. Had a mild nonproductive cough that this is baseline. No headaches or changes in vision, numbness or weakness. No abdominal pain, nausea, vomiting or diarrhea. He states it is also in persistent A. fib and is on Coumadin for this. - Related Data Home Medications Medication Instructions Recorded Confirmed Clopidogrel [Plavix] 75 mg PO DAILY 06/03/16 11/24/16 Furosemide [Lasix] 40 mg PO BID 06/03/16 11/24/16 Gabapentin [Neurontin] 1,200 mg PO BID 06/03/16 11/24/16 Potassium Chloride [K-Tab ER] 40 meq PO BID 06/03/16 11/24/16 Warfarin [Coumadin] 5 mg PO DAILY 06/03/16 11/24/16 Atorvastatin [Lipitor] 40 mg PO HS 09/02/16 11/24/16 Metoprolol XL (24 HR) Succ [Toprol 100 mg PO DAILY 10/15/16 11/24/16 Xl] Escitalopram [Lexapro] 20 mg PO DAILY 11/24/16 11/24/16 Finasteride [Proscar] 5 mg PO DAILY 11/24/16 11/24/16 Allergies Allergy/AdvReac Type Severity Reaction Status Date / Time lorazepam AdvReac Hallucinati Verified 11/24/16 12:51 ng losartan AdvReac See Verified 11/24/16 12:51 Comments Zolpidem [From Ambien] AdvReac Hallucinati Verified 11/24/16 12:51 ng All systems ED: reviewed and negative except as stated. Cardiovascular: Reports: dyspnea on exertion, orthopnea, edema, paroxysmal nocturnal dyspnea Respiratory: Reports: cough, dyspnea Past Medical History - Past Medical History Attestation: Yes The following information was validated with the patient. Source: patient Medical history: Reports: atrial fibrillation, cardiomyopathy, CHF, coronary artery disease, hyperlipidemia, hypertension Surgical history: Reports: other Psychiatric history: Reports: depression - Social History Smoking Status: Never smoker Smokeless Tobacco Status: No Alcohol use: Reports: none Drug use: Reports: none Physical Exam - General Limitations: no limitations General appearance: alert, in no apparent distress, obese - Head Head exam: atraumatic, normocephalic, normal inspection - Eye Eye exam: Present: normal appearance, PERRL, EOMI - ENT ENT exam: normal exam, normal oropharynx, mucous membranes moist - Neck Neck exam: Present: normal inspection, full ROM, trachea midline - Chest Chest inspection: Present: normal inspection, symmetric chest wall rise - Respiratory Respiratory exam: Present: other (Decreased breath sounds but no obvious rales) . Absent: normal lung sounds bilaterally - Cardiovascular Cardiovascular exam: Present: regular rate, normal rhythm, systolic murmur - Abdominal Exam Abdominal exam: Present: soft, other (Obese but otherwise nontender) - Extremities Exam Extremities exam: Present: normal inspection, full ROM. Absent: tenderness, pedal edema (States he normally does not get edema in his legs anyway) - Neurological Exam Neurological exam: Present: alert, oriented X3 - Psychiatric Psychiatric exam: Present: normal affect, normal mood - Skin Skin exam: Present: warm, dry, intact, normal color Course Course Narrative: Very pleasant 71-year-old male with AICD pacemaker from [employer] presenting with concern for developing CHF. He has a severe history of CHF and states that he is on a list at [facility] for a mechanical heart. States there is supposed to follow-up there on the of this month. Has an outpatient appointment for an echo with Dr. Nagy in the next few days. States she has felt the shortness of breath increasing over the past couple of days, but he had gained some weight. Overnight him approximately 3 pounds and took some extra Lasix today. Wanted to get checked out. He is not having any active chest pain and does not look like he is in acute failure. We will check labs including a BNP interrogate his pacemaker and an EKG. - Reevaluation(s) Reevaluation #1: patient is still in no acute distress. His BNP is around 500 is elevated compared to previous. Does not look overtly and failure based on his oxygen sats or peripheral edema. I spoke with the [employer] rep. We were initially having issues with the interrogation sending. He was able to walk and in view of his results. He did see that the patient has had some nonsustained V. tach. His last episode on November 21. He states that the patient has a fluid monitor electrode and that this number is very elevated and he would expect that the patient would be very short of breath and could be in very early acute heart failure. We will admit him the hospitalist service. He wanted to stay here. I do not think he needs a nitroglycerin drip or BiPAP at this time. Vital Signs Temperature 97.7 F 11/24/16 12:47 Pulse Rate 83 11/24/16 12:47 Respiratory Rate 20 11/24/16 12:47 Blood Pressure 138/95 11/24/16 12:47 O2 Sat by Pulse Oximetry 95 11/24/16 12:47 Temperature 97.7 F 11/24/16 12:47 Pulse Rate 82 11/24/16 13:38 Respiratory Rate 20 11/24/16 13:38 Blood Pressure 129/93 11/24/16 13:38 O2 Sat by Pulse Oximetry 97 11/24/16 13:38 Oxygen Delivery Oxygen Delivery Nasal Cannula Shortness of Breath/Dyspnea - Medical Records Medical records reviewed: Yes I reviewed the patient's medical records. - Lab Data Lab results reviewed: Yes I reviewed the patient's lab results. Result diagrams: 11/24/16 14:17 11/24/16 14:17 Lab Results 11/24/16 11/24/16 11/24/16 Range/Units 14:17 14:17 14:17 WBC 7.9 (4.3-11.1) K/mcL RBC 5.37 (4.19-5.50) M/mcL Hgb 13.4 (12.9-16.9) g/dL Hct 43.5 (37.5-50.1) % MCV 81.0 L (83.0-100.0) fL MCH 25.0 L (28.0-33.3) pg MCHC 30.8 L (31.6-35.5) g/dL RDW 16.0 H (11.5-14.5) % Plt Count 286 (140-400) K/mcL MPV 10.2 (9.4-12.4) fL Immature Gran % 0.3 (0-4) % Seg Neutrophils % 65.5 % Lymphocytes % 23.2 % Monocytes % 8.9 % Eosinophils % 1.6 % Basophils % 0.5 % Neutrophils # 5.2 (1.6-8.9) K/mcL Lymphocytes # 1.8 (0.6-4.6) K/mcL Monocytes # 0.7 (0.0-1.3) K/mcL Eosinophils # 0.1 (0.0-0.6) K/mcL Basophils # 0.0 (0.0-0.2) K/mcL PT (9.4-12.1) Seconds INR APTT (26.0-36.0) Seconds Sodium 144 (136-145) mEq/L Potassium 4.0 (3.5-4.5) mEq/L Chloride 108 (98-109) mEq/L Carbon Dioxide 29 (19-29) mEq/L BUN 19 (8-26) mg/dL Creatinine 1.22 (0.72-1.25) mg/dL Est GFR ( Amer) > 60 (> 60) Est GFR (Non-Af Amer) 58 L (> 60) BUN/Creatinine Ratio 16 (6-26) Glucose 96 (70-99) mg/dL Calculated Osmolality 300 (280-300) Calcium 9.2 (8.6-10.8) mg/dL Troponin I 0.02 (0-0.03) ng/mL B-Natriuretic Peptide (0-100) pg/mL 11/24/16 11/24/16 Range/Units 14:17 14:17 WBC (4.3-11.1) K/mcL RBC (4.19-5.50) M/mcL Hgb (12.9-16.9) g/dL Hct (37.5-50.1) % MCV (83.0-100.0) fL MCH (28.0-33.3) pg MCHC (31.6-35.5) g/dL RDW (11.5-14.5) % Plt Count (140-400) K/mcL MPV (9.4-12.4) fL Immature Gran % (0-4) % Seg Neutrophils % % Lymphocytes % % Monocytes % % Eosinophils % % Basophils % % Neutrophils # (1.6-8.9) K/mcL Lymphocytes # (0.6-4.6) K/mcL Monocytes # (0.0-1.3) K/mcL Eosinophils # (0.0-0.6) K/mcL Basophils # (0.0-0.2) K/mcL PT 28.6 H (9.4-12.1) Seconds INR 2.6 APTT 36.2 H (26.0-36.0) Seconds Sodium (136-145) mEq/L Potassium (3.5-4.5) mEq/L Chloride (98-109) mEq/L Carbon Dioxide (19-29) mEq/L BUN (8-26) mg/dL Creatinine (0.72-1.25) mg/dL Est GFR ( Amer) (> 60) Est GFR (Non-Af Amer) (> 60) BUN/Creatinine Ratio (6-26) Glucose (70-99) mg/dL Calculated Osmolality (280-300) Calcium (8.6-10.8) mg/dL Troponin I (0-0.03) ng/mL B-Natriuretic Peptide 516 H (0-100) pg/mL - Radiology Data Radiology results reviewed: Yes I reviewed the patient's radiology results. - EKG Data EKG attestation: Yes I reviewed and interpreted this EKG. EKG results narrative: Paced rhythm, rate 82, pacer spikes before each QRS, but does have a few PVCs. Similar morphology to previous performed last month SSarika - Katelyn Situation: Demographics, MOA Background: Presenting Complaint, Relevant PMH, Meds, & Allergies Assessment: Vital Signs, Course and respsone to treatment, Exam Concerns, Patient/Family Expectation, Pertinant Lab Results, Outstanding Labs Recommendation: Recommendation based on pending studies, treatments, or consults SSarika Report Given to: Dr. Bellamy for admission Katelyn Repor Time: 17:07 Attestation Statement - Attestation Attestation: Patient was seen with resident physician. I reviewed the history, physical, assessment and plan, and agree with the findings. I also personally evaluated this patient and had [id number] time with this patient. 71-year-old male comes in today with chief complaint of CHF. Patient has history of same is been treated at the CHF clinic at [facility] is also been treated for V. tach recently. Noted a 3 pound weight gain over the last 24 hours, also notes increasing shortness of breath. He is not on home O2, but he says his been using his 's home O2. He said this is not helping significantly. By the time I saw him he was on 3 L per nasal cannula and he said he felt fine. Also of note is that he took an extra Lasix this morning. On examination vital signs are stable. ENT is unremarkable. Heart regular rhythm and rate. Lungs clear. Abdomen soft and nontender. Extremities show no appreciable swelling which the family says is normal for him. Neurologically the patient's intact. CHF workup showed an elevated BNP, but an unremarkable chest x-ray. However when interrogating the patient's pacemaker this particular pacemaker also checks her fluid overload and it demonstrated significant abnormalities consistent with worsening CHF. This is also consistent with his presentation clinically. Patient was stable enough to stay here at [facility]. Hospitalist was notified as to the need for admission and fluid balance for acute CHF exacerbation. Hemodynamically the patient remained stable and comfortable on the emergency department. I agree with the resident physician assessment and plan.
[2016-11-24 14:35] LABS: INR 2.6; Prothrombin Time 28.6 Seconds (9.4-12.1)
[2016-11-24 14:38] LABS: Activated Partial Thrombo Time 36.2 Seconds (26.0-36.0); Basophils % 0.5 %; Eosinophils # 0.1 K/mcL (0.0-0.6); Eosinophils % 1.6 %; Hematocrit 43.5 % (37.5-50.1); Hemoglobin 13.4 g/dL (12.9-16.9); Immature Granulocytes % 0.3 % (0-4); Lymphocytes # 1.8 K/mcL (0.6-4.6); Lymphocytes % 23.2 %; Mean Corpuscular HGB Conc 30.8 g/dL (31.6-35.5); Mean Platelet Volume 10.2 fL (9.4-12.4); Monocytes # 0.7 K/mcL (0.0-1.3); Monocytes % 8.9 %; Neutrophils # 5.2 K/mcL (1.6-8.9); Platelet Count 286 K/mcL (140-400); Red Blood Count 5.37 M/mcL (4.19-5.50); Segmented Neutrophils % 65.5 %
[2016-11-24 14:44] LABS: BUN/Creatinine Ratio 16 (6-26); Blood Urea Nitrogen 19 mg/dL (8-26); Calcium 9.2 mg/dL (8.6-10.8); Carbon Dioxide 29 mEq/L (19-29); Chloride 108 mEq/L (98-109); Glucose 96 mg/dL (70-99); Osmolality,Calculated 300 (280-300); Sodium 144 mEq/L (136-145); eGFR For African Americans > 60 (> 60); eGFR For Non-African Americans 58 (> 60)
[2016-11-24] MEDS ORDERED: *HR* HYDROcodone/Acet 5/325 mg TABLET PO PRN (18:12)
[2016-11-24] MEDS ORDERED: Acetaminophen 325 MG TABLET PO PRN (18:12)
[2016-11-24] MEDS ORDERED: Naloxone 0.4 MG/ML INJ IVP PRN (18:12)
[2016-11-24] MEDS ORDERED: Ondansetron 4 MG/2 ML VIAL IVP PRN (18:12)
--- NOTE | 2016-11-24 18:31 | Internal Med History&Physical ---
<Elizabeth Knight - Last Filed: 11/24/16 18:41> Date of Encounter: 11/24/16 Time of Encounter: 18:00 Assessment and Plan (1) Acute on chronic systolic CHF (congestive heart failure) Current visit: Yes Status: Acute 1 she has been experiencing some shortness of breath weight gain orthopnea over the past few days. BMP 516. early stages of acute heart failure. We will continue with diuresis Lasix 40 mg twice a day IV 2 fluid restriction 1500 mL Monitor intake and output daily weights We will obtain cardiac echo Consult cardiology Continuous cardiac monitoring Low-sodium diet Patient has AICD is followed by [facility] heart failure clinic we will continue as outpatient follow-up (2) Coronary artery disease Current visit: No Status: Chronic 1 continue with metoprolol Plavix metoprolol Continuous cardiac monitoring Cardiac diet Qualifiers: Coronary Disease-Associated Artery/Lesion type: [place] artery [place] vs. transplanted heart: [place] heart Associated angina: without angina Qualified Code(s): I25.10 - Atherosclerotic heart disease of [place] coronary artery without angina pectoris (3) Anticoagulated on warfarin Current visit: Yes Status: Acute INR is 2.6 we will continue with Coumadin and pharmacy to dose Daily INR (4) Chronic atrial fibrillation Current visit: Yes Status: Acute Presently ventricularly paced continue with metoprolol and Coumadin Internal Medicine - H&P: HPI Chief complaint: SOB Admitted From: Emergency Dept Plans for Post Hospital Care: Home History of present illness: Mr. Olguin is a 71 year old male past medical history of CAD stent placement CHF patients followed by [facility] clinic AICD placement atrial fibrillation on Coumadin hypertension. Clinically patient has been experiencing increasing shortness of breath over the past few days he also has had a 3 pound weight gain since yesterday he denies any cough chest pain edema or palpitations. He also has been experiencing orthopnea and slept in a chair last night. She denies any fevers chills nausea vomiting abdominal pain or diarrhea. Prior to coming to the ER patient did take 80 mg of Lasix. Patient has episodes of nonsustained V. tach he does participate in cardiac rehabilitation however he has not been able to participate due to the V. tach. Patient presented to the ER with above complaints. According to ER records lab work was obtained unremarkable except patient's BNP was elevated at 516 troponin was 0.02 chest x- ray did reveal some cardiomegaly vital signs were stable. While in the ER patient had an episode of V. tach ER physician called [facility] concerning interrogation of patient's AICD. According to [facility] patient had some nonsustained V. tach on November 21 as well as some fluid buildup per monitor interrogation. Patient has been admitted for further workup and evaluation. Presently patient does not appear to be in respiratory distress he denies any chest pain or shortness of breath at this time. Lung sounds are clear throughout. Heart sounds S1-S2 with no rubs or clicks gallops murmurs noted no pedal edema noted EKG V paced. I reviewed this case with Past Med Surg Social Fam HX - Past Medical History Medical history: atrial fibrillation, cardiomyopathy, CHF, coronary artery disease, hyperlipidemia, hypertension Psychiatric history: depression - Past Surgical History Surgical History: other - Social History Smoking Status: Never smoker Smokeless Tobacco Status: No Alcohol use: none Drug use: none - Family History Mother Living Status: Father Living Status: Hx Family Cardiac Disorders: Yes Sister Adopted: No Family Member Ethnicity: Non- Living Status: Still Living Hx Family Cardiac Disorders: Yes (HTN) Hx Family Respiratory Disorders: No Hx Family Cancer: No Hx Family GI Disorders: No Hx Family Endocrine Disorder: No Hx Family Neuromuscular Disorders: No Hx Family Neurologic Disorders: No Hx Family HEENT Disorders: No Hx Family Autoimmune Disorders: No Internal Medicine - H&P: Meds Clopidogrel [Plavix] 75 mg PO DAILY 06/03/16 [History] Furosemide [Lasix] 40 mg PO BID 06/03/16 [History] Gabapentin [Neurontin] 1,200 mg PO BID 06/03/16 [History] Potassium Chloride [K-Tab ER] 40 meq PO BID 06/03/16 [History] Warfarin [Coumadin] 5 mg PO DAILY 06/03/16 [History] Atorvastatin [Lipitor] 40 mg PO HS 09/02/16 [History] Metoprolol XL (24 HR) Succ [Toprol Xl] 100 mg PO DAILY 10/15/16 [History] Escitalopram [Lexapro] 20 mg PO DAILY 11/24/16 [History] Finasteride [Proscar] 5 mg PO DAILY 11/24/16 [History] Allergies lorazepam Adverse Reaction (Verified 11/24/16 12:51) Hallucinating losartan Adverse Reaction (Verified 11/24/16 12:51) See Comments angioedema Zolpidem [From Ambien] Adverse Reaction (Verified 11/24/16 12:51) Hallucinating All Systems PM: A 10-system review of systems was performed and is negative for pertinent findings except as documented above in the HPI. - Constitutional Constitutional: weight gain - Cardiovascular Cardiovascular ROS IM: dyspnea, orthopnea - Respiratory Respiratory: dyspnea on exertion - Gastrointestinal Gastrointestinal: no abdominal pain, no diarrhea, no hematemesis, no hematochezia, no melena, no nausea, no vomiting - Musculoskeletal Musculoskeletal ROS IM: no numbness, no tingling - Integumentary Integumentary IM: no rash, no unusual bruising - Neurological Neurological ROS: no confusion, no convulsions, no focal weakness, no numbness, no tingling, no tremor(s) - Hematologic/Lymphatic Hematologic/Lymphatic: no easy bruising - Constitutional Vitals: Temp Pulse Resp BP Pulse Ox 97.7 F 83 20 131/86 97 11/24/16 12:47 11/24/16 15:47 11/24/16 17:28 11/24/16 17:28 11/24/16 15:47 General appearance: Present: A&O X 3, answers questions appropriately - Head Head exam: Present: atraumatic, normocephalic - Eye Eye exam: Present: PERRL, conjuntiva pink, sclera anicteric Pupils: Present: PERRL - Neck Neck exam general surgery: Present: supple, trachea midline. Absent: lymphadenopathy - Respiratory Respiratory exam: Present: CTAB. Absent: accessory muscle use, rales, rhonchi, wheezes - Cardiovascular Cardiovascular exam: Present: RRR, +S1, +S2. Absent: diastolic murmur, gallop, rubs, systolic murmur - GI/Abdominal GI/Abdominal exam: Present: normal bowel sounds, soft, no peritoneal signs. Absent: distended, tenderness - Extremities Exam Extremities exam: Present: warm, radial pulses palpable and symetrical. Absent : calf tenderness, cyanotic, pedal edema - Neurological Exam Neurological exam: Present: CN II-XII intact, oriented X3, no focal deficits. Absent: pronater drift, facial droop, speech deficit - Skin Skin exam: Present: dry, intact Internal Med - H&P Results - Labs CBC & Chem 7: 11/24/16 14:17 11/24/16 14:17 - EKG Data EKG comments: 11/24/16 18:33 Ventricular paced rhythm - Diagnostic Studies Other Images Additional comments: Chest X-Ray 11/24/16 13:39 IMPRESSION: Cardiomegaly. Hiatal hernia. D/ / 11/24/2016 14:39:16 Doe Holden MD / [facility] Interpreting Provider: Doe Holden MD <Yossi Bellamy - Last Filed: 11/24/16 21:02> Date of Encounter: 11/24/16 Internal Medicine - H&P: HPI History of present illness: Mr. Olguin is a 71 year old male All Systems PM: A 10-system review of systems was performed and is negative for pertinent findings except as documented above in the HPI. - Constitutional Vitals: Temp Pulse Resp BP Pulse Ox 97.6 F 81 16 128/83 99 11/24/16 18:56 11/24/16 18:56 11/24/16 18:56 11/24/16 18:56 11/24/16 18:56 Internal Med - H&P Results - Labs CBC & Chem 7: 11/24/16 14:17 11/24/16 14:17 Labs: Cardiac Enzymes 11/24/16 Range/Units 19:53 Troponin I 0.02 (0-0.03) ng/mL - Attending Attestation I examined this patient and my medical decision-making was reviewed with the Advanced Practice Nurse. I agree with the documented findings, disposition and treatment plan as described .
[2016-11-24] MEDS: *HR* Warfarin 5 MG TABLET PO SCH (20:49)
[2016-11-24] MEDS: Gabapentin 400 MG CAPSULE PO SCH (20:49)
[2016-11-25] MEDS ORDERED: Furosemide 40 MG/4 ML VIAL IVP ONE (00:02)
--- NOTE | 2016-11-25 00:21 | Event Note ---
Date of Encounter: 11/24/16 Time of Encounter: 23:45 I was called by the nurse as the patient was complaining of shortness of breath He states that he usually takes 80 mg of lasix daily (40 mg BID) and he takes an additional 40 mg lasix if he gains >3 lbs in a day He has taken only 80 mg on 11/24/16 at 4 AM & 8 AM. He did not get any lasix in the ER or since admission On exam, his sats are 90% on RA when sitting With CPAP, sats are 97% Will give him an extra 60 mg iv lasix dose now He will continue on lasix 40 mg iv BID tomorrow Depending on his progress, his lasix may be changed to PO route Continue CPAP at HS
[2016-11-25 02:57] LABS: Basophils # 0.1 K/mcL (0.0-0.2); Basophils % 0.7 %; Eosinophils # 0.2 K/mcL (0.0-0.6); Eosinophils % 1.9 %; Hematocrit 41.9 % (37.5-50.1); Hemoglobin 13.1 g/dL (12.9-16.9); Immature Granulocytes % 0.2 % (0-4); Lymphocytes % 24.6 %; Mean Corpuscular HGB Conc 31.3 g/dL (31.6-35.5); Mean Corpuscular Hemoglobin 25.3 pg (28.0-33.3); Mean Platelet Volume 10.5 fL (9.4-12.4); Monocytes # 0.8 K/mcL (0.0-1.3); Monocytes % 9.3 %; Neutrophils # 5.2 K/mcL (1.6-8.9); Platelet Count 252 K/mcL (140-400); Red Blood Count 5.17 M/mcL (4.19-5.50); Red Cell Distribution Width 16.2 % (11.5-14.5); Segmented Neutrophils % 63.3 %
[2016-11-25 03:01] LABS: INR 2.6; Prothrombin Time 28.8 Seconds (9.4-12.1)
[2016-11-25 03:13] LABS: BUN/Creatinine Ratio 14 (6-26); Blood Urea Nitrogen 19 mg/dL (8-26); Calcium 9.3 mg/dL (8.6-10.8); Carbon Dioxide 25 mEq/L (19-29); Chloride 109 mEq/L (98-109); Glucose 114 mg/dL (70-99); Osmolality,Calculated 301 (280-300); Potassium 3.5 mEq/L (3.5-4.5); Sodium 144 mEq/L (136-145); eGFR For African Americans > 60 (> 60); eGFR For Non-African Americans 52 (> 60)
[2016-11-25] MEDS: Finasteride 5 MG TABLET PO SCH (08:46)
[2016-11-25] MEDS: Furosemide 40 MG/4 ML VIAL IVP SCH ×2 (08:46→20:50)
[2016-11-25] MEDS: Gabapentin 400 MG CAPSULE PO SCH ×2 (08:46→20:50)
[2016-11-25] MEDS: Metoprolol XL (24 HR) Succ 50 MG TAB.ER.24H PO SCH (08:47)
--- NOTE | 2016-11-25 12:46 | Cardiology Consult Note ---
<J Carlos Beatty - Last Filed: 11/25/16 15:15> Date of Encounter: 11/25/16 Time of Encounter: 12:45 Assessment and Plan (1) Congestive heart failure Current Visit: Yes Status: Acute Per Cardiology: Appears to presented with mild acute on chronic systolic CHF. BNP noted to be 564. Chest x-ray shows cardiomegaly. Clinically improved during hospital stay with increased Lasix. Patient reports ICD interrogation showed "water on his heart". Patient admits to recent dietary indiscretion with salt on his potatoes. Reports compliance with medication regimen. Dietary and fluid resection education reinforced. On Lasix 40 mg IV twice a day. Patient now negative 3650ml. weight 263 pounds, of note was 271 pounds in office a few weeks ago. Discussed and reviewed with Dr. Franks. Qualifiers: Congestive heart failure type: systolic Congestive heart failure chronicity : unspecified congestive heart failure chronicity Qualified Code(s): I50.20 - Unspecified systolic (congestive) heart failure (2) Cardiomyopathy Current Visit: Yes Status: Chronic Per Cardiology: Patient with known ischemic cardiomyopathy. Patient was seen in cardiology office with pending repeat echo. Currently pending as inpatient. Most recent EF 30% on echo May 2015. According to Dr. Nagy's note most recent EF 15% at [facility] September 2016 with also severe RV enlargement and systolic dysfunction, no significant valvular disease, moderate pulmonary hypertension. Qualifiers: Cardiomyopathy type: unspecified Qualified Code(s): I42.9 - Cardiomyopathy , unspecified (3) Ventricular tachycardia Current Visit: Yes Status: Acute Per Cardiology: Per review of most recent office note patient experiencing frequent ventricular ectopy and nonsustained VT during cardiac rehabilitation with the referral to Dr. Tomas Olivera for further evaluation. Currently no significant VT noted on telemetry. Per primary service no evidence of ICD discharge on device interrogation. Will attempt to review those records. (4) Coronary artery disease Current Visit: No Status: Chronic Per Cardiology: Chest pain-free. Troponins negative. History of CAD. Patient reportedly with drug-eluting stent to August 2016. Will attempt to retrieve records. On statin, Plavix, beta al. Qualifiers: Coronary Disease-Associated Artery/Lesion type: [place] artery [place] vs. transplanted heart: [place] heart Associated angina: without angina Qualified Code(s): I25.10 - Atherosclerotic heart disease of [place] coronary artery without angina pectoris (5) Atrial fibrillation Current Visit: No Status: Chronic Per Cardiology: History of persistent intrafibrillation. Anticoagulate with Coumadin with current INR 2.6. Denies any bleeding or blood loss. History of AV node ablation and [employer]. Qualifiers: Atrial fibrillation type: chronic Qualified Code(s): I48.2 - Chronic atrial fibrillation Discussion w patient/family: The assessment and plan as outlined above was discussed with the patient who expressed understanding and agreement. All questions were answered. Thank you for involving us in the care of your patient. Please call with any questions. History of Present Illness Consult date: 11/25/16 Requesting physician: Yue Coe Consult reason: CHF Chief complaint: SOB History of present illness: Mr. Olguin is a 71 year old male with a relevant past medical history of systolic CHF with past EF 30% on echo May 2015 with ICD, atrial fibrillation on Coumadin, hypertension, hyperlipidemia, and CAD. Patient reports he follows with Dr. Nagy in outpatient setting and seen about 3 weeks ago. Indicates recent pacemaker with ICD change earlier this year at [facility]. Cardiology consult for evaluation of CHF and concerns of VT on telemetry. Patient reports his normal state of health up until the past few days. He reports difficulty with shortness of breath at rest. He reports some mild dietary noncompliance with using salt for his potatoes prior to symptoms developing. He does report about a 3 pound weight gain during the same time period. He denies any edema. He reports he took an extra dose of Lasix with no response. He denies any chest pain, palpitations, dizziness, syncope, falls. Denies any active bleeding or blood loss. Reports compliance with medications and on Coumadin. He denies any ICD shocks. Past Med Surg Social Fam HX - Past Medical History Attestation: Yes The following information was validated with the patient. Source: patient, old records reviewed Medical history: atrial fibrillation, cardiomyopathy, CHF, coronary artery disease, hyperlipidemia, hypertension Psychiatric history: depression - Past Surgical History Surgical History: other - Social History Smoking Status: Never smoker Smokeless Tobacco Status: No Alcohol use: none Drug use: none - Family History Mother Living Status: Father Living Status: Hx Family Cardiac Disorders: Yes Sister Adopted: No Family Member Ethnicity: Non- Living Status: Still Living Hx Family Cardiac Disorders: Yes (HTN) Hx Family Respiratory Disorders: No Hx Family Cancer: No Hx Family GI Disorders: No Hx Family Endocrine Disorder: No Hx Family Neuromuscular Disorders: No Hx Family Neurologic Disorders: No Hx Family HEENT Disorders: No Hx Family Autoimmune Disorders: No Medications and Allergies Clopidogrel [Plavix] 75 mg PO DAILY 06/03/16 [History] Furosemide [Lasix] 40 mg PO BID 06/03/16 [History] Gabapentin [Neurontin] 1,200 mg PO BID 06/03/16 [History] Potassium Chloride [K-Tab ER] 40 meq PO BID 06/03/16 [History] Warfarin [Coumadin] 5 mg PO DAILY 06/03/16 [History] Atorvastatin [Lipitor] 40 mg PO HS 09/02/16 [History] Metoprolol XL (24 HR) Succ [Toprol Xl] 100 mg PO DAILY 10/15/16 [History] Escitalopram [Lexapro] 20 mg PO DAILY 11/24/16 [History] Finasteride [Proscar] 5 mg PO DAILY 11/24/16 [History] Allergies lorazepam Adverse Reaction (Verified 11/24/16 12:51) Hallucinating losartan Adverse Reaction (Verified 11/24/16 12:51) See Comments angioedema Zolpidem [From Ambien] Adverse Reaction (Verified 11/24/16 12:51) Hallucinating All Systems Review: A 10-system review of systems was performed and is negative for pertinent findings except as documented above in the HPI. - Cardiovascular Cardiovascular: as per HPI, dyspnea at rest Physical Examination Vital Signs, Last 4 Hours Pulse Ox 11/25/16 08:59 96 Selected Entries 11/25/16 08:09 11/25/16 08:59 Temperature 97.8 F Pulse Rate 86 Respiratory Rate 18 Blood Pressure 115/69 O2 Sat by Pulse Oximetry 96 Oxygen Delivery Method Room Air General: Conversant, No Apparent Distress HEENT: Atraumatic, Normocephaly, Mucus Membranes Moist Neck: No JVD, Normal carotid pulses Cardiac: Reg Rate and Rhythm, Normal S1 and S2, No Murmur Lungs: Normal Breath Sounds, No Wheeze, Rales, Rhonchi Neuro: Alert and responsive, No focal deficits noted Abdomen: Soft, Non-Tender Skin: No rashes noted on visualized skin Musculoskeletal: No Chest Wall Tenderness Extremities: No Edema, Normal Pulses Results 11/25/16 02:23 11/25/16 02:23 Lab Results Laboratory Tests 11/05/16 11/24/16 11/24/16 11:50 14:17 14:17 INR Est GFR (Non-Af Amer) 55 L 58 L Troponin I 0.02 B-Natriuretic Peptide 11/24/16 11/24/16 11/25/16 14:17 19:53 02:23 INR Est GFR (Non-Af Amer) Troponin I 0.02 0.02 B-Natriuretic Peptide 516 H 11/25/16 11/25/16 02:23 02:23 INR 2.6 Est GFR (Non-Af Amer) 52 L Troponin I B-Natriuretic Peptide ITS Impressions Chest X-Ray 11/24/16 13:39 IMPRESSION: Cardiomegaly. Hiatal hernia. D/ / 11/24/2016 14:39:16 Doe Holden MD / [facility] Interpreting Provider: Doe Holden MD Intake & Output 11/22/16 11/23/16 11/24/16 11/25/16 23:59 23:59 23:59 23:59 Intake Total 400 / 400 0 / 0 Output Total 500 / 500 3550 / 3550 Balance -100 / -100 -3550 / -3550 Weight 122.47 kg 119.7 kg Active Medications Acetaminophen (Tylenol) 650 mg PO Q6HR PRN PRN Reason: Mild Pain (1-3) Stop: 05/26/17 18:13 Acetaminophen/Hydrocodone Bitart ([place] 5-325 Mg) 1 tab PO Q4HR PRN PRN Reason: Moderate Pain (4-6) Stop: 05/26/17 18:13 Atorvastatin Calcium (Lipitor) 40 mg PO HS [facility] Stop: 05/26/17 21:01 Last Admin: 11/24/16 20:49 Dose: 40 mg Clopidogrel Bisulfate (Plavix) 75 mg PO DAILY [facility] Stop: 05/27/17 09:01 Last Admin: 11/25/16 08:46 Dose: 75 mg Escitalopram Oxalate (Lexapro) 20 mg PO DAILY [facility] Stop: 05/27/17 09:01 Last Admin: 11/25/16 08:46 Dose: 20 mg Finasteride (Proscar) 5 mg PO DAILY [place] PRN Reason: Protocol Stop: 05/27/17 09:01 Last Admin: 11/25/16 08:46 Dose: 5 mg Furosemide (Lasix) 40 mg IVP BID [facility] Stop: 05/27/17 09:01 Last Admin: 11/25/16 08:46 Dose: 40 mg Gabapentin (Neurontin) 1,200 mg PO BID [facility] Stop: 05/26/17 21:01 Last Admin: 11/25/16 08:46 Dose: 1,200 mg Metoprolol Succinate (Toprol Xl) 100 mg PO DAILY [facility] Stop: 05/27/17 09:01 Last Admin: 11/25/16 08:47 Dose: 100 mg Naloxone HCl (Narcan) 0.4 mg IVP Q2MIN PRN PRN Reason: Opioid Reversal Stop: 05/26/17 18:13 Ondansetron HCl (Zofran) 4 mg IVP Q8HR PRN PRN Reason: Nausea And Vomiting Stop: 05/26/17 18:13 Potassium Chloride (Potassium Chloride) 40 meq PO BID [facility] Stop: 05/26/17 21:01 Last Admin: 11/25/16 08:46 Dose: 40 meq Warfarin Sodium (Coumadin Perpt) 1 each PO DAILY@1800 PRN PRN Reason: SEE COMMENTS Stop: 05/27/17 18:01 Warfarin Sodium (Coumadin) 5 mg PO 1800 [facility] Stop: 05/26/17 20:16 Last Admin: 11/24/16 20:49 Dose: 5 mg - Imaging and Cardiology Chest Xray: report reviewed Echo: pending - EKG Interpretation EKG results cardiology: personally reviewed, ventricular paced rhythm (24-hour telemetry reviewed with average heart rate 85, ventricular pacing with PVCs and nonsustained VT longest 5 beats) Consult Discharge Plan - Plan Referrals: J Carlos Cruz Jr, MD [Primary Care Provider] - <Radha Franks - Last Filed: 11/25/16 15:41> Date of Encounter: 11/25/16 Assessment and Plan Discussion w patient/family: The assessment and plan as outlined above was discussed with the patient and/or family members who expressed understanding and agreement. All questions were answered. Thank you for involving us in the care of your patient. Please call with any questions. History of Present Illness History of present illness: Mr. Olguin is a 71 year old male All Systems Review: A 10-system review of systems was performed and is negative for pertinent findings except as documented above in the HPI. Results 11/25/16 02:23 11/25/16 02:23 Lab Results 11/24/16 11/25/16 11/25/16 19:53 02:23 02:23 WBC 8.3 Hgb 13.1 Hct 41.9 Plt Count 252 INR Sodium Potassium Chloride Carbon Dioxide BUN Creatinine Glucose Calcium Troponin I 0.02 0.02 11/25/16 11/25/16 02:23 02:23 WBC Hgb Hct Plt Count INR 2.6 Sodium 144 Potassium 3.5 Chloride 109 Carbon Dioxide 25 BUN 19 Creatinine 1.35 H Glucose 114 H Calcium 9.3 Troponin I - Attending Attestation I examined this patient and my medical decision-making was reviewed with the LUNG SPLITTER/PA/Advanced Practice Nurse/Resident Physician. I agree with the documented findings, disposition and treatment plan. Mr. Olguin presents with mild acute systolic CHF. He reports being at [facility] recently for a CHF exacerbation and admits to dietary noncompliance. I agree with IV diuresis with careful watch on kidney function. Also recommend dietary sodium and fluid restriction. He states that he's in frequent contact with a CHF Nurse Navigator at [facility]. Otherwise, most recent office note demonstrated concern for frequent NSVT and wanted EP evaluation. We will have Dr. Tomas Olivera evaluate the patient during his stay. We will obtain recent device interrogation. For now, continue BB, statin and antiplatelet agent. May consider the addition of an aldosterone antagonist.
--- NOTE | 2016-11-25 15:06 | Internal Med Progress Note ---
Date of Encounter: 11/25/16 Time of Encounter: 12:45 - Subjective Interval history: Patient seen and examined at bedside. REsting comfortably in bed and denies any discomfort at this time. States he had good urine output after receiving the lasix overnight. Currently saturating well on nasal cannula. Assessment and Plan (1) Acute on chronic systolic CHF (congestive heart failure) Current visit: Yes Status: Acute Clinically improving continue IV diuresis O2 supplementation as needed monitor I/Os fluid restriction diet daily weights f/u 2D echo s/p AICD interrogation awaiting cardiology consultation (2) Coronary artery disease Current visit: No Status: Chronic continue with metoprolol Plavix Continuous cardiac monitoring Cardiac diet Qualifiers: Coronary Disease-Associated Artery/Lesion type: [place] artery [place] vs. transplanted heart: [place] heart Associated angina: without angina Qualified Code(s): I25.10 - Atherosclerotic heart disease of [place] coronary artery without angina pectoris (3) Anticoagulated on warfarin Current visit: Yes Status: Acute INR within therapeutic range we will continue with Coumadin and pharmacy to dose Daily INR, InR goal: 2-3 (4) Chronic atrial fibrillation Current visit: Yes Status: Acute Presently ventricularly paced continue with metoprolol and Coumadin DVT ppx: anticoagulated with Coumadin (5) GIOVANA Current visit: Yes Status: Acute Slightly worsened from previous day likely secondary to diuretic therapy will closely monitor pt does have history of CKD - Constitutional Vitals: Temp Pulse Resp BP Pulse Ox 97.8 F 86 18 115/69 96 11/25/16 08:09 11/25/16 08:09 11/25/16 08:09 11/25/16 08:09 11/25/16 08:59 General appearance: Present: cooperative, A&O X 3, morbidly obese, pleasant, no acute distress, answers questions appropriately - Head Head exam: Present: atraumatic, normocephalic - Eye Eye exam: Present: normal appearance, conjuntiva pink, sclera anicteric - Respiratory Respiratory exam: Present: CTAB. Absent: accessory muscle use, rales, rhonchi, wheezes - Cardiovascular Cardiovascular exam: Present: RRR, +S1, +S2. Absent: diastolic murmur, gallop, rubs, systolic murmur - GI/Abdominal GI/Abdominal exam: Present: normal bowel sounds, soft, no peritoneal signs. Absent: distended, tenderness - Extremities Exam Extremities exam: Present: warm, radial pulses palpable and symetrical. Absent : calf tenderness, cyanotic, pedal edema - Neurological Exam Neurological exam: Present: alert, oriented X3 - Psychiatric Psychiatric exam: Present: normal affect, normal mood Internal Medicine: Result - Labs CBC & Chem 7: 11/25/16 02:23 11/25/16 02:23 Labs: Short CBC 11/25/16 Range/Units 02:23 WBC 8.3 (4.3-11.1) K/mcL Hgb 13.1 (12.9-16.9) g/dL Hct 41.9 (37.5-50.1) % Plt Count 252 (140-400) K/mcL Neutrophils # 5.2 (1.6-8.9) K/mcL BMP 11/25/16 02:23 Sodium 144 Potassium 3.5 Chloride 109 Carbon Dioxide 25 BUN 19 Creatinine 1.35 H Glucose 114 H Calcium 9.3 Cardiac Enzymes 11/24/16 11/25/16 Range/Units 19:53 02:23 Troponin I 0.02 0.02 (0-0.03) ng/mL - ABG Interpretation ABG results: PT/INR, D-dimer PT 28.8 Seconds (9.4-12.1) H 11/25/16 02:23 Consult Discharge Plan - Plan Referrals: J Carlos Cruz Jr, MD [Primary Care Provider] -
[2016-11-25] MEDS: *HR* Warfarin 5 MG TABLET PO SCH (17:34)
--- NOTE | 2016-11-25 17:59 | Electrocardiograph Report ---
[place] [id number] Test Date: 2016-11-24 Pat Name: Yayo Olguin Department: 102 Room: 2A44 Gender: M Case Management Manager: [facility] : 1945 Requested By: Sg Pandya Order Number: [id number] Reading MD: Radha Franks Measurements Intervals [place] Rate: 82 P: LA: 0 QRS: -57 QRSD: 177 T: 104 QT: 468 QTc: 507 Interpretive Statements ELECTRONIC [employer]EN[employer]ICULAR PACEMAKER Electronically Signed On 11-25-2016 17:58:04 EDT by Radha Franks
[2016-11-25] MEDS ORDERED: Warfarin perPT PO PRN (18:00)
[2016-11-26 05:01] LABS: Basophils # 0.1 K/mcL (0.0-0.2); Basophils % 0.8 %; Eosinophils # 0.2 K/mcL (0.0-0.6); Hematocrit 41.6 % (37.5-50.1); Hemoglobin 13.1 g/dL (12.9-16.9); INR 2.5; Immature Granulocytes % 0.1 % (0-4); Lymphocytes # 2.2 K/mcL (0.6-4.6); Lymphocytes % 29.5 %; Mean Corpuscular HGB Conc 31.5 g/dL (31.6-35.5); Mean Corpuscular Hemoglobin 25.2 pg (28.0-33.3); Mean Platelet Volume 11.2 fL (9.4-12.4); Monocytes # 0.7 K/mcL (0.0-1.3); Monocytes % 9.8 %; Neutrophils # 4.3 K/mcL (1.6-8.9); Platelet Count 265 K/mcL (140-400); Prothrombin Time 27.5 Seconds (9.4-12.1); Red Cell Distribution Width 16.1 % (11.5-14.5); Segmented Neutrophils % 57.8 %
[2016-11-26 05:22] LABS: BUN/Creatinine Ratio 16 (6-26); Blood Urea Nitrogen 20 mg/dL (8-26); Calcium 9.4 mg/dL (8.6-10.8); Carbon Dioxide 25 mEq/L (19-29); Chloride 107 mEq/L (98-109); Glucose 93 mg/dL (70-99); Osmolality,Calculated 298 (280-300); Phosphorous 4.1 mg/dL (2.3-4.7); Potassium 3.5 mEq/L (3.5-4.5); Sodium 143 mEq/L (136-145); eGFR For African Americans > 60 (> 60); eGFR For Non-African Americans 55 (> 60)
[2016-11-26] MEDS ORDERED: Perflutren Lipid Microsphere 1.3 ML in 0.9 % Sodium Chloride 8.7 ML IVP ONE (07:49)
[2016-11-26] MEDS: Furosemide 40 MG/4 ML VIAL IVP SCH (09:03)
[2016-11-26] MEDS: Metoprolol XL (24 HR) Succ 50 MG TAB.ER.24H PO SCH (09:03)
[2016-11-26] MEDS: Gabapentin 400 MG CAPSULE PO SCH (09:03)
[2016-11-26] MEDS: Finasteride 5 MG TABLET PO SCH (09:03)
--- NOTE | 2016-11-26 10:34 | Cardiology Progress Note ---
Date of Encounter: 11/26/16 Time of Encounter: 10:32 Assessment and Plan (1) Acute on chronic systolic CHF (congestive heart failure) Current Visit: Yes Status: Acute Mild CHF on admission. Diuresed well and now euvolemic on exam Start home dose of lasix. Repeat TTE pending. Continue daily weights, low sodium diet, and strict I&O. CHF education reviewed. Patient has AICD is followed by [facility] heart failure clinic we will continue as outpatient follow-up (2) Cardiomyopathy Current Visit: Yes Status: Chronic Per Cardiology: Patient with known ischemic cardiomyopathy. Most recent EF 15% on echo at [facility] September 2016. Also severe RV enlargement and systolic dysfunction, no significant valvular disease, moderate pulmonary hypertension. Inpatient TTE pending. Qualifiers: Cardiomyopathy type: unspecified Qualified Code(s): I42.9 - Cardiomyopathy , unspecified (3) Coronary artery disease Current Visit: No Status: Chronic Per Cardiology: Chest pain-free. Troponins negative. History of CAD. Patient reportedly with drug-eluting stent to August 2016. On statin, Plavix, beta al. Qualifiers: Coronary Disease-Associated Artery/Lesion type: [place] artery [place] vs. transplanted heart: [place] heart Associated angina: without angina Qualified Code(s): I25.10 - Atherosclerotic heart disease of [place] coronary artery without angina pectoris (4) Atrial fibrillation Current Visit: No Status: Chronic Per Cardiology: History of persistent intrafibrillation. Currently rate controlled on toprol XL. Anticoagulate with Coumadin with current INR 2.5. 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 Qualifiers: Atrial fibrillation type: chronic Qualified Code(s): I48.2 - Chronic atrial fibrillation (5) Ventricular tachycardia Current Visit: Yes Status: Acute Per Cardiology: Per review of most recent office note patient experiencing frequent ventricular ectopy and nonsustained VT during cardiac rehabilitation with the referral to Dr. Tomas Olivera for further evaluation. Currently no significant VT noted on telemetry. Two three beat runs seen. Device check showed 15 runs of NSVT. Full report not available. No shocks or ATP. Full device report ordered from [employer]. Continue toprol XL. Potassium and magnesium WNL. Discussion w patient/family: The assessment and plan as outlined above was discussed with the patient and/or family members who expressed understanding and agreement. All questions were answered. Thank you for involving us in the care of your patient. Please call with any questions. Subjective Principal diagnosis: NSVT, CHF, afib Interval history: Pt states he is back to normal. Denies SOB or chest pain. Objective Vital Signs, Last 4 Hours Temp Pulse Resp BP Pulse Ox 11/26/16 07:09 97.6 F 83 18 123/79 95 General: Conversant, No Apparent Distress HEENT: Atraumatic, Normocephaly, Mucus Membranes Moist Neck: No JVD, Normal carotid pulses Cardiac: Other (irregularly irregular) Lungs: Normal Breath Sounds, No Wheeze, Rales, Rhonchi Neuro: Alert and responsive, No focal deficits noted Abdomen: Soft, Non-Tender Skin: No rashes noted on visualized skin Musculoskeletal: No Chest Wall Tenderness Extremities: No Clubbing, No Cyanosis, No Edema, Normal Pulses Results 11/26/16 04:09 11/26/16 04:09 Lab Results 11/26/16 11/26/16 11/26/16 04:09 04:09 04:09 WBC 7.4 Hgb 13.1 Hct 41.6 Plt Count 265 INR 2.5 Sodium Potassium Chloride Carbon Dioxide BUN Creatinine Glucose Calcium Magnesium 2.1 11/26/16 04:09 WBC Hgb Hct Plt Count INR Sodium 143 Potassium 3.5 Chloride 107 Carbon Dioxide 25 BUN 20 Creatinine 1.29 H Glucose 93 Calcium 9.4 Magnesium - Imaging and Cardiology Echo: pending - EKG Interpretation EKG results cardiology: other (24 hour telemetry review shows AVg HR 86 bpm atrial fibrillation. No bradycardia or pauses. Frequent PVC seen. Occasional couplet and two tristin seen.) Consult Discharge Plan - Plan Referrals: J Carlos Cruz Jr, MD [Primary Care Provider] - 12/04/16 9:30 am (Please follow up as schedule...)
--- NOTE | 2016-11-26 11:09 | ECHO - Doppler Report ---
Echo with Imaging Enhancement Agent Name: Yayo Olguin Date of Study: 11/26/2016 Date: 1945 Ht: 72.0 in Medical Record#: [id number] Age: 71 Wt: 256.0 lb Gender: Male BSA: 2.37 Order #: [id number] Location: [facility] Room #: 2A44 Reading Physician: Ferdinand Nagy DO, FRANCK PADILLA Miscellaneous Machine Operator: Alessia Ornelas Ordering Physician: Yue Coe MD Primary Physician: J Carlos Cruz MD Indications: Congestive heart failure Impressions: LVEF 15-20%. Moderate to severely dilated left ventricle. Severe global and segmental left ventricular systolic dysfunction. Indeterminate diastolic function. There is no LV thrombus. Mildly dilated and hypokinetic right ventricle. Mild mitral regurgitation. Mild pulmonary hypertension. Estimated RVSP is 41 mmHg. Mild pulmonic regurgitation. A device lead was visualized in the right atrium and right ventricle. Compared to prior reports, LVEF has worsened. Left Ventricular Wall Motion: Rest Echo Findings The apex, apical inferior, apical anterior, mid anterior, basal anterior, apical septal, mid inferior septal, basal inferior septal, apical lateral, mid anterior lateral, basal anterior lateral, mid anterior septal, mid inferior lateral, basal anterior septal and basal inferior lateral srinivasan were hypokinetic. The mid inferior and basal inferior srinivasan were akinetic. Findings: Study Quality * Technically adequate exam. ECG Findings * Paced rhythm. Left Ventricle * LVEF 15-20%. * Moderate to severely dilated left ventricle. * Severe global and segmental left ventricular systolic dysfunction. * Indeterminate diastolic function. * There is no LV thrombus. * Atypical septal motion consistent with paced rhythm. Right Ventricle * Mildly dilated and hypokinetic right ventricle. Left Atrium * Moderately dilated left atrium. Right Atrium * Severely dilated right atrium. Interatrial Septum * Interatrial septum not well evaluated. Aortic Valve * Trileaflet aortic valve. * Mildly sclerotic aortic valve leaflets. * No aortic regurgitation. * No aortic stenosis. Mitral Valve * Normal mitral valve structure. * Mild mitral regurgitation. * No mitral stenosis. Tricuspid Valve * Normal tricuspid valve structure and function. * Trace tricuspid regurgitation. * Mild pulmonary hypertension. * Estimated RVSP is 41 mmHg. * Estimated RA pressure is 5 mmHg. Pulmonic Valve * Normal pulmonic valve structure. * Mild pulmonic regurgitation. Aorta * Normally sized aortic root. Pericardium * The pericardium appears normal. IVC * Normal IVC dimensions and inspiratory collapse. Device lead * A device lead was visualized in the right atrium and right ventricle. Pulmonary Artery * Normal visualized portions of the main pulmonary artery. History Hypertension Hypercholesteremia History of CAD/PTCA Congestive Heart Failure Pacer/ICD Implant 06/06/15 a Previous Echo was performed. Contrast: Definity 1.3 ml in 8.7 ml of saline 2 ml. Measurements: BP: 102/ 70 2D Normal Values RVIDd: 4.50 cm <2.7 cm IVSd: 1.20 cm 0.6 - 1.0 cm LVIDd: 6.30 cm 3.7 - 5.6 cm LVPWd: 1.20 cm 0.6 - 1.1 cm LVIDs: 5.80 cm 1.5 - 3.6 cm AO: 3.10 cm < 4.0 cm LA: 4.40 cm 2.0 - 4.0cm %FS: 4.92 cm >25 % LA volume: 68 Mitral Valve Peak E:.80 m/sec Peak E' Lat Martín:6.34 cm/s Peak E' Med Martín:5.26 cm/s E/E' Lat Ratio:12.5 E/E' Med Ratio:15.1 Tricuspid Valve TV Regurg Peak Grad: 36.00mmHg TV Regurg Peak Martín: 3.02m/sec Updated by Ferdinand Nagy DO, FACCesar, FRANCK, COLLEEN on 11/26/2016 11:04:34 AM electronically signed on 11/26/2016 11:05:02 AM with status of Final Wall Motion [place]: 1=Normal, 2=Hypokinesis, 3=Akinesis, 4=Dyskinesis, 5=Aneurysmal, 6=Hyperkinetic, X=Not Visualized (Blank)=Missing
[2016-11-26 11:10] VITALS: BP 101/65
--- NOTE | 2016-11-26 11:51 | Discharge Summary ---
Date of Encounter: 11/26/16 Time of Encounter: 10:55 - Discharge Diagnosis (1) Acute on chronic systolic CHF (congestive heart failure) Priority: Primary Status: Resolved (2) Atrial fibrillation Priority: Secondary Status: Chronic Qualifiers: Atrial fibrillation type: chronic Qualified Code(s): I48.2 - Chronic atrial fibrillation (3) Essential hypertension Priority: Secondary Status: Chronic - Discharge Medications Home Medications: Clopidogrel [Plavix] 75 mg PO DAILY 06/03/16 [History] Furosemide [Lasix] 40 mg PO BID 06/03/16 [History] Gabapentin [Neurontin] 1,200 mg PO BID 06/03/16 [History] Potassium Chloride [K-Tab ER] 40 meq PO BID 06/03/16 [History] Warfarin [Coumadin] 5 mg PO DAILY 06/03/16 [History] Atorvastatin [Lipitor] 40 mg PO HS 09/02/16 [History] Metoprolol XL (24 HR) Succ [Toprol Xl] 100 mg PO DAILY 10/15/16 [History] Escitalopram [Lexapro] 20 mg PO DAILY 11/24/16 [History] Finasteride [Proscar] 5 mg PO DAILY 11/24/16 [History] Allergies/Adverse Reactions: Allergies lorazepam Adverse Reaction (Verified 11/24/16 12:51) Hallucinating losartan Adverse Reaction (Verified 11/24/16 12:51) See Comments angioedema Zolpidem [From Ambien] Adverse Reaction (Verified 11/24/16 12:51) Hallucinating Procedures/tests Complete & Pending: Procedures Performed prior 72 hours Category Date Time Status EV echocardiogram w enhance Routine Y 11/26/16 08:35 Completed Date of admission: 11/24/16 17:09 Primary care physician: J Carlos Cruz Jr, MD Consults: 11/24/16 18:20 Consult to Cardiology [CONS] Routine Comment: Consulting Provider: Cardiology [place] Reason for Consult: CHF Time Notified: 18:21 Call Completed: No Discharging clinician: Yue Coe Anticipated date of discharge: 11/26/16 - Patient Status Disposition: Home, Self-Care Condition: Good Functional capacity at discharge: independent ambulation Overall status at discharge: patient is back to baseline - Discharge Instructions Follow Up With: J Carlos Cruz Jr, MD [Primary Care Provider] - 12/04/16 9:30 am (Please follow up as schedule...) Additional Instructions: Please follow up with your primary care physician within five days after your discharge from the hospital. Your service person's office will call you in regards to your follow up appointment. Continue your home dose of lasix and follow up with your service person at [facility] for your AICD. Resume all your other home medications as prescribed by your primary care physician. Seek medical help if you have worsening shortness of breath or chest pain. continue to wear your CPAP at bedtime. continue your follow up with coumadin clinic as scheduled by your primary care physician. - Diet and Activity Activity: resume usual activities as tolerated Diet: low salt diet Hospital course: Mr. Olguin is a 71 year old male with PMH with PMH of CAD s/p stent placement, CHF who was admitted for management of shortness of breath secondary to CHF decompensation. He was started on IV diuretic therapy which improved his symptoms significantly. His repeat 2D echo is consistent with his prior study. He is currently back at his baseline respiratory status, saturating well on room air. He will be discharged to home with follow up with PCP and cardiology after discharge. Patient understands his diagnosis and agree with his discharge care and plan. - Time Spent with Patient Total time spent providing and/or coordinating discharge services: Less than 30 minutes - Constitutional Vitals: Temp Pulse Resp BP Pulse Ox 97.8 F 82 18 101/65 95 11/26/16 11:07 11/26/16 11:07 11/26/16 11:07 11/26/16 11:07 11/26/16 11:07 General appearance: Present: cooperative, A&O X 3, morbidly obese, pleasant, no acute distress, answers questions appropriately - Head Head exam: Present: atraumatic, normocephalic - Eye Eye exam: Present: normal appearance, conjuntiva pink, sclera anicteric - Respiratory Respiratory exam: Present: CTAB. Absent: accessory muscle use, rales, rhonchi, wheezes - Cardiovascular Cardiovascular exam: Present: RRR, +S1, +S2. Absent: diastolic murmur, gallop, rubs, systolic murmur - GI/Abdominal GI/Abdominal exam: Present: normal bowel sounds, soft, no peritoneal signs. Absent: distended, tenderness - Extremities Exam Extremities exam: Present: warm, radial pulses palpable and symetrical. Absent : calf tenderness, cyanotic, pedal edema - Neurological Exam Neurological exam: Present: alert, oriented X3 - Psychiatric Psychiatric exam: Present: normal affect, normal mood
[2016-11-26] MEDS ORDERED: Aminoglycoside Consult 1 EACH MC ONE (12:26)
[2016-11-26] MEDS ORDERED: Furosemide 40 MG TABLET PO SCH (17:00)
[2016-11-26] MEDS ORDERED: *HR* Warfarin 5 MG TABLET PO SCH (18:00)
== END 2016-11-26 12:27 | disposition home or self-care (01) ==
LOC: 2ANU 12:44 → EMEROO 12:44 → 2ANU 18:04
PROVIDERS: ADMIT Nurse Practitioner Acute Care; ATTEND Internal Medicine

== ENCOUNTER 2016-12-17 05:44 | Inpatient (IN) ==
[2016-12-17] MEDS ORDERED: Nitroglycerin 0.4 MG TAB.SUBL SL PRN ×2 (05:59→07:43)
--- NOTE | 2016-12-17 06:02 | Emergency Department Note ---
Disposition Clinical Impression: CHF exacerbation Qualifiers: Congestive heart failure type: unspecified congestive heart failure type Qualified Code(s): I50.9 - Heart failure, unspecified Disposition: Still a Patient Referrals: NO,PCP [Non-Partnered Physician] - Forms: ED Satisfaction Letter SOB HPI - General Chief Complaint: ED Shortness of Breath/Dyspnea Stated Complaint: GIORGIO/CHF Time Seen by Provider: 12/17/16 05:52 Source: patient Limitations: no limitations Nursing Notes Reviewed: Yes Vital Signs Reviewed: Yes - History of Present Illness Patient here for evaluation of shortness of breath and chest pressure. Patient has a history of pacemaker AICD. Congestive heart failure with EF15%. Patient has had a stent placed to his LAD for 95% blockage. Because started becoming short of breath last night. Took extra Lasix at home without resolution. States that he was admitted to the hospital approximately 2 weeks ago for similar complaints of more shortness of breath and the chest pressure. Pressure is described as in the center of his chest heaviness without radiation. Exacerbated by worsening dyspnea. - Related Data Home Medications Medication Instructions Recorded Confirmed Clopidogrel [Plavix] 75 mg PO DAILY 06/03/16 12/17/16 Furosemide [Lasix] 40 mg PO BID 06/03/16 12/17/16 Gabapentin [Neurontin] 600 mg PO BID 06/03/16 12/17/16 Potassium Chloride [K-Tab ER] 40 meq PO BID 06/03/16 12/17/16 Warfarin [Coumadin] 5 mg PO DAILY 06/03/16 12/17/16 Atorvastatin [Lipitor] 40 mg PO HS 09/02/16 12/17/16 Metoprolol XL (24 HR) Succ [Toprol 100 mg PO DAILY 10/15/16 12/17/16 Xl] Escitalopram [Lexapro] 20 mg PO DAILY 11/24/16 12/17/16 Finasteride [Proscar] 5 mg PO DAILY 11/24/16 12/17/16 Aspirin [Lo-Dose Aspirin EC] 81 mg PO DAILY 12/17/16 12/17/16 Allergies Allergy/AdvReac Type Severity Reaction Status Date / Time lorazepam AdvReac Hallucinati Verified 12/17/16 06:42 ng losartan AdvReac See Verified 12/17/16 06:42 Comments Zolpidem [From Ambien] AdvReac Hallucinati Verified 12/17/16 06:42 ng Review of Systems: CONSTITUTIONAL: No weight loss, fever, chills, weakness or fatigue. HEENT: Eyes: No visual changes. Ears, Nose, Throat: No hearing loss, difficulty talking or unable to swallow. SKIN: No rash or itching. CARDIOVASCULAR: chest pain, chest pressure. No palpitations or edema. RESPIRATORY: shortness of breath, No cough or sputum. GASTROINTESTINAL: No anorexia, nausea, vomiting or diarrhea. No abdominal pain or blood. GENITOURINARY: No burning on urination or hematuria. NEUROLOGICAL: No headache, dizziness, syncope, paralysis, ataxia, numbness or tingling in the extremities. No change in bowel or bladder control. MUSCULOSKELETAL: No muscle pain, back pain, joint pain or stiffness. Past Medical History - Past Medical History Medical history: Reports: atrial fibrillation, cardiomyopathy, CHF, coronary artery disease, hyperlipidemia, hypertension Surgical history: Reports: other Psychiatric history: Reports: depression - Social History Smoking Status: Never smoker Smokeless Tobacco Status: No Alcohol use: Reports: none Drug use: Reports: none Physical Exam General appearance: NAD, conversant Eyes: anicteric sclerae, moist conjunctivae; PERRL HENT: Atraumatic; oropharynx clear with moist mucous membranes and no mucosal ulcerations Neck: Normal inspection; Trachea midline; FROM, supple Lungs: Rales at the bases bilaterally CV: RRR, no MRGs Abdomen: Soft, non-tender; no rebound or gaurding Extremities: No peripheral edema or extremity lymphadenopathy Skin: Normal temperature; no rash, ulcers or lesions Psych: Appropriate mood and affect Neuro: alert and oriented to person, place and time - General Limitations: no limitations General appearance: alert, in no apparent distress Course - Reevaluation(s) Reevaluation #1: pt signed out to the day team. Dr Avila. Vital Signs Temperature 97.6 F 12/17/16 05:46 Pulse Rate 85 12/17/16 05:46 Respiratory Rate 20 12/17/16 05:46 Blood Pressure 125/81 12/17/16 05:46 O2 Sat by Pulse Oximetry 93 12/17/16 05:46 Temperature 97.6 F 12/17/16 05:46 Pulse Rate 79 12/17/16 06:45 Respiratory Rate 20 12/17/16 06:45 Blood Pressure 119/70 05/29/17 06:45 O2 Sat by Pulse Oximetry 93 12/17/16 06:45 Oxygen Delivery Oxygen Delivery Room Air Shortness of Breath/Dyspnea - Medical Records Medical records reviewed: Yes I reviewed the patient's medical records. - Lab Data Lab results reviewed: Yes I reviewed the patient's lab results. Result diagrams: 12/17/16 05:55 12/17/16 05:55 Lab Results 12/17/16 12/17/16 12/17/16 Range/Units 05:55 05:55 05:55 WBC 8.1 (4.3-11.1) K/mcL RBC 5.08 (4.19-5.50) M/mcL Hgb 12.3 L (12.9-16.9) g/dL Hct 41.1 (37.5-50.1) % MCV 80.9 L (83.0-100.0) fL MCH 24.2 L (28.0-33.3) pg MCHC 29.9 L (31.6-35.5) g/dL RDW 16.5 H (11.5-14.5) % Plt Count 277 (140-400) K/mcL MPV 10.0 (9.4-12.4) fL Immature Gran % 0.2 (0-4) % Seg Neutrophils % 63.8 % Lymphocytes % 23.6 % Monocytes % 9.9 % Eosinophils % 2.0 % Basophils % 0.5 % Neutrophils # 5.1 (1.6-8.9) K/mcL Lymphocytes # 1.9 (0.6-4.6) K/mcL Monocytes # 0.8 (0.0-1.3) K/mcL Eosinophils # 0.2 (0.0-0.6) K/mcL Basophils # 0.0 (0.0-0.2) K/mcL PT 23.8 H (9.4-12.1) Seconds INR 2.2 APTT 33.3 (26.0-36.0) Seconds Sodium (136-145) mEq/L Potassium (3.5-4.5) mEq/L Chloride (98-109) mEq/L Carbon Dioxide (19-29) mEq/L BUN (8-26) mg/dL Creatinine (0.72-1.25) mg/dL Est GFR ( Amer) (> 60) Est GFR (Non-Af Amer) (> 60) BUN/Creatinine Ratio (6-26) Glucose (70-99) mg/dL Calculated Osmolality (280-300) Calcium (8.6-10.8) mg/dL Troponin I (0-0.03) ng/mL B-Natriuretic Peptide 523 H (0-100) pg/mL 12/17/16 12/17/16 Range/Units 05:55 05:55 WBC (4.3-11.1) K/mcL RBC (4.19-5.50) M/mcL Hgb (12.9-16.9) g/dL Hct (37.5-50.1) % MCV (83.0-100.0) fL MCH (28.0-33.3) pg MCHC (31.6-35.5) g/dL RDW (11.5-14.5) % Plt Count (140-400) K/mcL MPV (9.4-12.4) fL Immature Gran % (0-4) % Seg Neutrophils % % Lymphocytes % % Monocytes % % Eosinophils % % Basophils % % Neutrophils # (1.6-8.9) K/mcL Lymphocytes # (0.6-4.6) K/mcL Monocytes # (0.0-1.3) K/mcL Eosinophils # (0.0-0.6) K/mcL Basophils # (0.0-0.2) K/mcL PT (9.4-12.1) Seconds INR APTT (26.0-36.0) Seconds Sodium 143 (136-145) mEq/L Potassium 4.0 (3.5-4.5) mEq/L Chloride 109 (98-109) mEq/L Carbon Dioxide 26 (19-29) mEq/L BUN 23 (8-26) mg/dL Creatinine 1.47 H (0.72-1.25) mg/dL Est GFR ( Amer) 57 L (> 60) Est GFR (Non-Af Amer) 47 L (> 60) BUN/Creatinine Ratio 16 (6-26) Glucose 121 H (70-99) mg/dL Calculated Osmolality 301 H (280-300) Calcium 9.2 (8.6-10.8) mg/dL Troponin I 0.02 (0-0.03) ng/mL B-Natriuretic Peptide (0-100) pg/mL - Radiology Data Radiology results reviewed: Yes I reviewed the patient's radiology results. - EKG Data EKG attestation: Yes I reviewed and interpreted this EKG. EKG results narrative: EKG shows ventricularly paced rhythm at a rate of 82. QRS 177. QTC 496. No significant change from 11/24/16. Attestation Statement - Attestation Attestation: I, Felix Tellez MD, personally evaluated this patient and discussed their management with the resident physician. I reviewed the resident's note and agree with the documented findings, medical decision making, and plan of care. 71-year-old male with history of CHF presents to the emergency department with a complaint of increased shortness of breath started about 8 PM last evening. Patient states he took his normal dose of Lasix about 8 PM. It did not seem to have any effect at about midnight he took a second dose. He has been unable to sleep and had to sit up in his recliner all night because he gets short of breath lies down. He also complains of some mild tightness and heaviness across the mid chest. No cough or fever. On examination patient is a well-developed well-nourished well-appearing elderly male in no acute distress. He is alert and oriented 3. There is no cyanosis or diaphoresis. Breath sounds are decreased bilaterally with a few crackles in the bases bilaterally. No wheezes noted. Heart regular rate and rhythm. Abdomen soft and nontender with normal bowel sounds. 1+ pedal edema. Labs reviewed. BNP 523. EKG shows electronic ventricular pacemaker with a paced rhythm. Chest x-ray shows enlarged cardiac silhouette, no definite pneumonia or edema. The hospitalist was consulted for admission. As a shift change the hospitalist has not answered the page and patient is being signed out to the oncoming team, Dr. Bonilla and Dr. vAila.
[2016-12-17 06:19] LABS: Basophils % 0.5 %; Eosinophils # 0.2 K/mcL (0.0-0.6); Hematocrit 41.1 % (37.5-50.1); Hemoglobin 12.3 g/dL (12.9-16.9); Immature Granulocytes % 0.2 % (0-4); Lymphocytes # 1.9 K/mcL (0.6-4.6); Lymphocytes % 23.6 %; Mean Corpuscular HGB Conc 29.9 g/dL (31.6-35.5); Mean Corpuscular Hemoglobin 24.2 pg (28.0-33.3); Mean Corpuscular Volume 80.9 fL (83.0-100.0); Monocytes # 0.8 K/mcL (0.0-1.3); Monocytes % 9.9 %; Neutrophils # 5.1 K/mcL (1.6-8.9); Platelet Count 277 K/mcL (140-400); Red Blood Count 5.08 M/mcL (4.19-5.50); Red Cell Distribution Width 16.5 % (11.5-14.5); Segmented Neutrophils % 63.8 %
[2016-12-17 06:26] LABS: INR 2.2; Prothrombin Time 23.8 Seconds (9.4-12.1)
[2016-12-17 06:28] LABS: Activated Partial Thrombo Time 33.3 Seconds (26.0-36.0)
[2016-12-17 06:35] LABS: Calcium 9.2 mg/dL (8.6-10.8)
[2016-12-17] MEDS ORDERED: Furosemide 40 MG/4 ML VIAL IVP STA (06:53)
[2016-12-17] MEDS ORDERED: Aspirin 81 MG TAB.CHEW PO STA (06:55)
--- NOTE | 2016-12-17 07:26 | Emergency Department Note ---
START Narrative - START START: I received Mr. Grullon at sign-out from the night team. Status: Workup complete , admission pending and awaiting hospitalist call back. He is currently comfortable and has no questions or complaints at this time. Patient's son is at bedside. In brief: Patient is a 71yo male with hx CHR (EF 15%), with pacemaker/AICD in place. Experienced dyspnea with CP last night which progressively worsened through today. He took an additional dose of lasix last night without improvement. His CP was relieved with single SL nitro taken at home. Workup this AM showed elevated BNP. EKG and CXR unremarkable. He received ASA and Lasix IVP in the ER prior to admission. 07:[address] Barajas, admitting hospitalist. He agrees to accept the patient and has not questions at this time. 07:30 Spoke with patient and son - updated on his admission. Neither has any questions or concerns at this time. Patient is chest pain free unless he takes a deep inspiration. Saturating middle 90's% on RA. <Rhys Avila - Last Filed: 12/17/16 08:44> - START START: I examined this patient and my medical decision-making was reviewed with the DIVISION CHAIR/PA/Advanced Practice Nurse/Resident Physician. I agree with the documented findings, disposition and treatment plan as described except to the extent set forth below. Patient signed out pending admission callback. Patient interviewed and voices no concerns. Admitted to medicine. <Jamaica Bonilla - Last Filed: 12/17/16 13:55>
[2016-12-17] MEDS ORDERED: Ipratropium/Albuterol Neb 3 ML IH PRN (07:43)
[2016-12-17] MEDS ORDERED: Acetaminophen 325 MG TABLET PO PRN (07:47)
[2016-12-17] MEDS ORDERED: Naloxone 0.4 MG/ML INJ IVP PRN (07:47)
[2016-12-17] MEDS ORDERED: *HR* Morphine 2 MG/ML SYRINGE IVP PRN (07:47)
[2016-12-17] MEDS ORDERED: Ondansetron 4 MG/2 ML VIAL IVP PRN (07:47)
--- NOTE | 2016-12-17 07:52 | Internal Med History&Physical ---
Date of Encounter: 12/17/16 Time of Encounter: 07:50 Assessment and Plan (1) Acute on chronic systolic CHF (congestive heart failure) Current visit: No Status: Resolved Acute on chronic systolic CHF exacerbation with an ejection fraction of 15% Continue Lasix IV at 40 mg twice a day, strict I's and nose and daily weight Nitroglycerin as needed, monitor troponins, telemetry Continue aspirin, may resume metoprolol later today, continue Plavix and statin Omeprazole for GI prophylaxis and Lovenox for DVT prophylaxis. The patient will be admitted for observation. Full code. Time spent on this admission 40 minutes. High risk for respiratory failure (2) BPH (benign prostatic hypertrophy) with urinary retention Current visit: No Status: Acute Urinary retention Continue Proscar for now Bladder scan and consider One[place] catheter insertion Needs to follow up with urology as outpatient (3) Coronary artery disease Current visit: No Status: Chronic Continue aspirin, Plavix, statin, nitroglycerin, metoprolol Qualifiers: Coronary Disease-Associated Artery/Lesion type: [place] artery [place] vs. transplanted heart: [place] heart Associated angina: without angina Qualified Code(s): I25.10 - Atherosclerotic heart disease of [place] coronary artery without angina pectoris (4) Atrial fibrillation Current visit: No Status: Chronic Continue warfarin Monitor INR Qualifiers: Atrial fibrillation type: chronic Qualified Code(s): I48.2 - Chronic atrial fibrillation (5) Anticoagulated on warfarin Current visit: No Status: Acute (6) Cardiomyopathy Current visit: No Status: Chronic Qualifiers: Cardiomyopathy type: unspecified Qualified Code(s): I42.9 - Cardiomyopathy , unspecified Internal Medicine - H&P: HPI Chief complaint: Shortness of breath Admitted From: Emergency Dept History of present illness: Mr. Olguin is a 71 year old male with a past medical history of systolic CHF with an ejection fraction of 15%/cardiomyopathy, CAD with a drug-eluting stent in the LAD placed in August of this year, atrial fibrillation on Coumadin who comes to the emergency room complaining of severe difficulty breathing and chest pressure that started 3 days ago. Patient took an extra dose of Lasix last night and feels better this morning. She denies any phlegm production his BNP is 523 his creatinine has increased from 1.29 up to 1.47 INR is 2.2. EKG shows ventricular paced rhythm chest x-ray shows mild vascular congestion. Denies any fever or sick contacts. At the beginning of this month on November 26 was discharged for heart failure symptoms. Has been complaining of some urinary retention at times. Flomax was discontinued at [facility] due to episodes of syncope, the patient was started on Proscar but has not been able to void properly Past Med Surg Social Fam HX - Past Medical History Medical history: atrial fibrillation (On Coumadin), cardiomyopathy, CHF ( Systolic ejection fraction 15%), coronary artery disease (Status post drug- eluting stent in the LAD in August of this year), hyperlipidemia, hypertension , renal disease (Chronic kidney disease stage III), other (Neuropathy, BPH, V. tach in the past, prostatitis) Psychiatric history: depression - Past Surgical History Surgical History: cholecystectomy, pacemaker/AICD (Defibrillator), other ( Cardiac catheterization) - Social History Smoking Status: Never smoker Smokeless Tobacco Status: No Alcohol use: none Drug use: none - Family History Mother Living Status: Father Living Status: Hx Family Cardiac Disorders: Yes Sister Adopted: No Family Member Ethnicity: Non- Living Status: Still Living Hx Family Cardiac Disorders: Yes (HTN) Hx Family Respiratory Disorders: No Hx Family Cancer: No Hx Family GI Disorders: No Hx Family Endocrine Disorder: No Hx Family Neuromuscular Disorders: No Hx Family Neurologic Disorders: No Hx Family HEENT Disorders: No Hx Family Autoimmune Disorders: No - Additional Family History Additional family history: Sister with hypertension Internal Medicine - H&P: Meds Clopidogrel [Plavix] 75 mg PO DAILY 06/03/16 [History] Furosemide [Lasix] 40 mg PO BID 06/03/16 [History] Gabapentin [Neurontin] 600 mg PO BID 06/03/16 [History] Potassium Chloride [K-Tab ER] 40 meq PO BID 06/03/16 [History] Warfarin [Coumadin] 5 mg PO DAILY 06/03/16 [History] Atorvastatin [Lipitor] 40 mg PO HS 09/02/16 [History] Metoprolol XL (24 HR) Succ [Toprol Xl] 100 mg PO DAILY 10/15/16 [History] Escitalopram [Lexapro] 20 mg PO DAILY 11/24/16 [History] Finasteride [Proscar] 5 mg PO DAILY 11/24/16 [History] Aspirin [Lo-Dose Aspirin EC] 81 mg PO DAILY 12/17/16 [History] Allergies lorazepam Adverse Reaction (Verified 12/17/16 06:42) Hallucinating losartan Adverse Reaction (Verified 12/17/16 06:42) See Comments angioedema Zolpidem [From Ambien] Adverse Reaction (Verified 12/17/16 06:42) Hallucinating All Systems PM: A 10-system review of systems was performed and is negative for pertinent findings except as documented above in the HPI. Review of systems: Feels less short of breath, chest tightness has resolved after receiving the nitroglycerin, troponins are negative. Other systems out of the ten reviewed were negative - Constitutional Vitals: Temp Pulse Resp BP Pulse Ox 97.6 F 78 18 131/97 95 12/17/16 05:46 12/17/16 07:35 12/17/16 07:35 12/17/16 07:35 12/17/16 07:35 General appearance: Present: A&O X 3 - Head Head exam: Present: atraumatic, normocephalic - Eye Eye exam: Present: PERRL, conjuntiva pink, sclera anicteric Pupils: Present: PERRL - Neck Neck exam general surgery: Present: supple, trachea midline. Absent: lymphadenopathy - Respiratory Respiratory exam: Present: CTAB, rales (Bibasilar fine crackles). Absent: accessory muscle use, rhonchi, wheezes - Cardiovascular Cardiovascular exam: Present: RRR, +S1, +S2. Absent: diastolic murmur, gallop, rubs, systolic murmur - GI/Abdominal GI/Abdominal exam: Present: distended, normal bowel sounds, soft, no peritoneal signs. Absent: tenderness - Extremities Exam Extremities exam: Present: warm, radial pulses palpable and symetrical. Absent : calf tenderness, cyanotic, pedal edema - Neurological Exam Neurological exam: Present: CN II-XII intact, oriented X3, no focal deficits. Absent: pronater drift, facial droop, speech deficit - Skin Skin exam: Present: dry, intact Internal Med - H&P Results - Labs CBC & Chem 7: 12/17/16 05:55 12/17/16 05:55 Labs: Short CBC 12/17/16 Range/Units 05:55 WBC 8.1 (4.3-11.1) K/mcL Hgb 12.3 L (12.9-16.9) g/dL Hct 41.1 (37.5-50.1) % Plt Count 277 (140-400) K/mcL Neutrophils # 5.1 (1.6-8.9) K/mcL BMP 12/17/16 05:55 Sodium 143 Potassium 4.0 Chloride 109 Carbon Dioxide 26 BUN 23 Creatinine 1.47 H Glucose 121 H Calcium 9.2 Cardiac Enzymes 12/17/16 Range/Units 05:55 Troponin I 0.02 (0-0.03) ng/mL - Impressions ITS Impressions Chest X-Ray 12/17/16 05:53 IMPRESSION: Enlarged cardiac silhouette. No evidence of edema or pneumonia. D/ / 12/17/2016 07:21:28 Adi Alejandra MD / cherelle Interpreting Provider: Adi Alejandra MD
[2016-12-17] MEDS: Aspirin Enteric Coated 81 MG Tablet PO SCH (08:52)
[2016-12-17] MEDS: Finasteride 5 MG TABLET PO SCH (09:50)
[2016-12-17] MEDS: Furosemide 40 MG/4 ML VIAL IVP SCH ×2 (09:50→20:28)
[2016-12-17] MEDS: Metoprolol XL (24 HR) Succ 50 MG TAB.ER.24H PO SCH (09:51)
[2016-12-17] MEDS: Gabapentin 300 MG CAPSULE PO SCH ×2 (09:51→20:29)
[2016-12-17] MEDS ORDERED: *HR* Warfarin 5 MG TABLET PO SCH (18:00)
[2016-12-18] MEDS ORDERED: *HR* Enoxaparin 40 MG/0.4 ML SYRINGE SQ SCH (06:00)
[2016-12-18 06:07] LABS: BUN/Creatinine Ratio 17 (6-26); Blood Urea Nitrogen 21 mg/dL (8-26); Carbon Dioxide 26 mEq/L (19-29); Chloride 107 mEq/L (98-109); Glucose 82 mg/dL (70-99); Osmolality,Calculated 300 (280-300); Potassium 3.2 mEq/L (3.5-4.5); Sodium 144 mEq/L (136-145); eGFR For African Americans > 60 (> 60); eGFR For Non-African Americans 59 (> 60)
[2016-12-18 06:31] LABS: Prothrombin Time 23.3 Seconds (9.4-12.1)
--- NOTE | 2016-12-18 06:33 | Event Note ---
Date of Encounter: 12/18/16 Time of Encounter: 06:31 the patient's INR has jumped up to 7.4 from 2.2 yesterday. He received 5 mg of warfarin yesterday which appears to be his home dose. I have stopped the warfarin and ordered repeat INR stat and as well repeat INR at 2 PM. I ordered CBC stat to assess for any drop in hemoglobin and hematocrit.
[2016-12-18 06:38] LABS: INR 2.1
[2016-12-18 06:54] VITALS: BP 103/60
[2016-12-18 07:13] LABS: INR 2.4; Prothrombin Time 26.6 Seconds (9.4-12.1)
[2016-12-18 07:33] LABS: Basophils % 0.5 %; Eosinophils # 0.2 K/mcL (0.0-0.6); Eosinophils % 2.6 %; Hematocrit 41.1 % (37.5-50.1); Hemoglobin 12.6 g/dL (12.9-16.9); Immature Granulocytes % 0.3 % (0-4); Lymphocytes # 1.7 K/mcL (0.6-4.6); Lymphocytes % 23.7 %; Mean Corpuscular HGB Conc 30.7 g/dL (31.6-35.5); Mean Corpuscular Hemoglobin 24.5 pg (28.0-33.3); Mean Platelet Volume 10.2 fL (9.4-12.4); Monocytes # 0.7 K/mcL (0.0-1.3); Monocytes % 9.4 %; Neutrophils # 4.7 K/mcL (1.6-8.9); Platelet Count 234 K/mcL (140-400); Red Blood Count 5.14 M/mcL (4.19-5.50); Red Cell Distribution Width 16.4 % (11.5-14.5); Segmented Neutrophils % 63.5 %
[2016-12-18] MEDS: Gabapentin 300 MG CAPSULE PO SCH (08:42)
[2016-12-18] MEDS: Finasteride 5 MG TABLET PO SCH (08:42)
[2016-12-18] MEDS: Metoprolol XL (24 HR) Succ 50 MG TAB.ER.24H PO SCH (08:43)
[2016-12-18] MEDS: Furosemide 40 MG/4 ML VIAL IVP SCH (08:43)
[2016-12-18] MEDS: Aspirin Enteric Coated 81 MG Tablet PO SCH (08:43)
--- NOTE | 2016-12-18 09:14 | Discharge Summary ---
Date of Encounter: 12/18/16 Time of Encounter: 08:00 - Discharge Diagnosis (1) CHF exacerbation Priority: Primary Status: Acute Qualifiers: Congestive heart failure type: systolic Qualified Code(s): I50.23 - Acute on chronic systolic (congestive) heart failure (2) BPH (benign prostatic hypertrophy) with urinary retention Priority: Secondary Status: Acute (3) Coronary artery disease Priority: Secondary Status: Chronic Qualifiers: Coronary Disease-Associated Artery/Lesion type: [place] artery [place] vs. transplanted heart: [place] heart Associated angina: without angina Qualified Code(s): I25.10 - Atherosclerotic heart disease of [place] coronary artery without angina pectoris (4) Atrial fibrillation Priority: Secondary Status: Chronic Qualifiers: Atrial fibrillation type: chronic Qualified Code(s): I48.2 - Chronic atrial fibrillation (5) Anticoagulated on warfarin Priority: Secondary Status: Acute - Discharge Medications Home Medications: Clopidogrel [Plavix] 75 mg PO DAILY 06/03/16 [History] Furosemide [Lasix] 40 mg PO BID 06/03/16 [History] Gabapentin [Neurontin] 600 mg PO BID 06/03/16 [History] Potassium Chloride [K-Tab ER] 40 meq PO BID 06/03/16 [History] Warfarin [Coumadin] 5 mg PO DAILY 06/03/16 [History] Atorvastatin [Lipitor] 40 mg PO HS 09/02/16 [History] Metoprolol XL (24 HR) Succ [Toprol Xl] 100 mg PO DAILY 10/15/16 [History] Escitalopram [Lexapro] 20 mg PO DAILY 11/24/16 [History] Finasteride [Proscar] 5 mg PO DAILY 11/24/16 [History] Aspirin [Lo-Dose Aspirin EC] 81 mg PO DAILY 12/17/16 [History] Allergies/Adverse Reactions: Allergies lorazepam Adverse Reaction (Verified 12/17/16 06:42) Hallucinating losartan Adverse Reaction (Verified 12/17/16 06:42) See Comments angioedema Zolpidem [From Ambien] Adverse Reaction (Verified 12/17/16 06:42) Hallucinating Date of admission: 12/17/16 17:25 Primary care physician: J Carlos Cruz Jr, MD Discharging clinician: Brenden Horne Anticipated date of discharge: 12/18/16 - Patient Status Disposition: Home, Self-Care Condition: Good Functional capacity at discharge: independent ambulation Overall status at discharge: patient is back to baseline - Discharge Instructions Follow Up With: J Carlos Cruz Jr, MD [Primary Care Provider] - Additional Instructions: Shreya cardiology in one week. - Diet and Activity Activity: increase activity as tolerated Diet: low salt diet Interval History: Mr. Olguin is a 71 year old male with a past medical history of systolic CHF with an ejection fraction of 15%/cardiomyopathy, CAD with a drug-eluting stent in the LAD placed in August of this year, atrial fibrillation on Coumadin who comes to the emergency room complaining of severe difficulty breathing and chest pressure that started 3 days ago. Patient took an extra dose of Lasix last night and feels better this morning. She denies any phlegm production his BNP is 523 his creatinine has increased from 1.29 up to 1.47 INR is 2.2. EKG shows ventricular paced rhythm chest x-ray shows mild vascular congestion. Denies any fever or sick contacts. At the beginning of this month on November 26 was discharged for heart failure symptoms. Has been complaining of some urinary retention at times. Flomax was discontinued at [facility] due to episodes of syncope, the patient was started on Proscar but has not been able to void properly Hospital course: Mr. Olguin is a 71 year old male admitted for shortness of breath. patient has history of CHF with LVEF 15%. He was treated with IV Lasix, after treatment,he had over 4 L negative fluid balance. His shortness of breath has improved significantly, he feel right now is his baseline. No leg swelling. Vitals are stable. Patient will discharge home and continue by mouth Lasix. 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 I saw and examined pt today. He is awake, alert, oriented x 3. Vitals are stable. Lab reviewed, unremarkable (INR 2.4). Mild hypokalemia (3.2), potassium supplement was given and pt is on his regular potassium pills. He will discharge home and follow up with his cardiology in one week. Pt is on beta al, not on ACEI/ARB due to allergy. s/p AICD placement. - Time Spent with Patient Total time spent providing and/or coordinating discharge services: 40 min Greater than 30 minutes - Constitutional Vitals: Temp Pulse Resp BP Pulse Ox 97.9 F 83 18 103/60 95 05//17 06:49 12/18/16 06:49 12/18/16 06:49 12/18/16 06:49 12/18/16 06:49 General appearance: Present: A&O X 3, no acute distress, answers questions appropriately - Head Head exam: Present: atraumatic, normocephalic - Eye Eye exam: Present: PERRL, conjuntiva pink, sclera anicteric Pupils: Present: PERRL - Neck Neck exam general surgery: Present: supple, trachea midline. Absent: lymphadenopathy - Respiratory Respiratory exam: Present: CTAB. Absent: accessory muscle use, rales, rhonchi, wheezes - Cardiovascular Cardiovascular exam: Present: RRR, +S1, +S2. Absent: diastolic murmur, gallop, rubs, systolic murmur - GI/Abdominal GI/Abdominal exam: Present: normal bowel sounds, soft, no peritoneal signs. Absent: distended, tenderness - Extremities Exam Extremities exam: Present: warm, radial pulses palpable and symetrical. Absent : calf tenderness, cyanotic, pedal edema - Neurological Exam Neurological exam: Present: CN II-XII intact, oriented X3, no focal deficits. Absent: pronater drift, facial droop, speech deficit - Skin Skin exam: Present: dry, intact
[2016-12-18] MEDS ORDERED: Warfarin perPT PO PRN (18:00)
[2016-12-18] MEDS ORDERED: *HR* Warfarin 5 MG TABLET PO SCH (18:00)
--- NOTE | 2016-12-18 18:15 | Electrocardiograph Report ---
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
== END 2016-12-18 11:31 | disposition home or self-care (01) | DRG 291 ==
LOC: 3ANU 05:44 → EMEROO 05:44 → 3ANU 08:45
PROVIDERS: ADMIT Internal Medicine; ATTEND Internal Medicine